=== PATIENT | female | born 1960 | race Caucasian/White ===

== ENCOUNTER 2020-01-15 10:31 | Emergency (ER) | payer MEDICAID, OTHER ==
[~2020-01-15] VITALS: Ht 160 cm; Wt 53.1 kg
[2020-01-15 11:19] LABS: Basophils # (auto) 0.1 10 ^3/uL (0-0.2); Basophils % (auto) 0.9 % (0.0-2.0); Eosinophils # (auto) 0 10 ^3/uL (0-0.8); Eosinophils % (auto) 0.5 % (0.0-7.0); Hematocrit 42.3 % (36.0-46.0); Hemoglobin 14.9 g/dL (12.2-16.2); Lymphocytes # (auto) 2.6 10 ^3/uL (0.4-5.4); Lymphocytes % (auto) 33.2 % (10.0-50.0); Mean Corpuscular Hemoglobin 32.4 pg (28.0-32.0); Mean Corpuscular Hgb Conc. 35.2 g/dL (32.0-36.0); Mean Corpuscular Volume 91.9 fL (80.0-100.0); Monocytes # (auto) 0.4 10 ^3/uL (0-1.3); Monocytes % (auto) 5.3 % (0.0-12.0); Neutrophils # (auto) 4.6 10 ^3/uL (1.6-8.6); Neutrophils % (auto) 60.1 % (37.0-80.0); Nucleated Red Blood Cells % 0.2 %; Platelet Count (auto) 311 10^3/uL (140-450); Red Cell Distribution Width 12.9 % (11.8-14.3); White Blood Cell 7.7 10^3/uL (4.4-10.8)
[2020-01-15 11:27] LABS: Urine Bacteria FEW /hpf (None Seen); Urine Blood Negative /uL (Negative); Urine Specific Gravity 1.008 (1.001-1.035); Urine WBC 14 /hpf (0 - 5)
[2020-01-15 11:36] LABS: Albumin 4.2 g/dL (3.4-5.0); Calcium 8.9 mg/dL (8.5-10.1); Potassium 3.9 mmol/L (3.5-5.1)
[2020-01-15 11:40] LABS: BUN/Creatinine Ratio 11.4; Bilirubin, Total 0.3 mg/dL (0.2-1.0); Total Protein 7.9 g/dL (6.4-8.2)
[2020-01-15] MEDS ORDERED: cefTRIAXone 1GM/50ML D5W 50 ML IV ONE (13:45)
[2020-01-15] MEDS ORDERED: MORPHINE SULF INJ 2 MG/ML SYRINGE 1ML IV ONE (14:15)
[2020-01-15] MEDS ORDERED: METOCLOPRAMIDE HCL 5MG/ml INJ 2ml VIAL IV ONE (14:15)
[2020-01-15 15:06] VITALS: BP 130/84
== END 2020-01-15 14:51 | disposition home or self-care (01) ==
LOC: ER 10:31
DX: R10.31 Right lower quadrant pain (principal); N39.0 Urinary tract infection, site not specified; I10 Essential (primary) hypertension; E11.9 Type 2 diabetes mellitus without complications; J44.9 Chronic obstructive pulmonary disease, unspecified; Z88.5 Allergy status to narcotic agent
CPT/HCPCS: 36415; 74176; 80053; 81001; 84484; 85025; 93005; 96365; 96375; 99285; J0696; J2270; J2765

== ENCOUNTER 2020-02-07 05:31 | Inpatient (IN) | payer MEDICAID ==
[~2020-02-07] VITALS: Ht 160 cm; Wt 62.4 kg
[2020-02-07] MEDS ORDERED: AZITHROMYCIN 500MG/ 250ML 250 ML IV ONE (07:15)
[2020-02-07] MEDS ORDERED: cefTRIAXone 1GM/50ML D5W 50 ML IV ONE (07:15)
[2020-02-07] MEDS ORDERED: SODIUM CHLORIDE 0.9% 1,000 ML IV ONE ×2 (07:15)
[2020-02-07 08:07] LABS: Basophils # (auto) 0.1 10 ^3/uL (0-0.2); Basophils % (auto) 0.5 % (0.0-2.0); Eosinophils # (auto) 0 10 ^3/uL (0-0.8); Hematocrit 42.3 % (36.0-46.0); Hemoglobin 14.4 g/dL (12.2-16.2); Lymphocytes # (auto) 1.7 10 ^3/uL (0.4-5.4); Lymphocytes % (auto) 9.2 % (10.0-50.0); Mean Corpuscular Hemoglobin 31.2 pg (28.0-32.0); Mean Corpuscular Hgb Conc. 33.9 g/dL (32.0-36.0); Mean Corpuscular Volume 91.9 fL (80.0-100.0); Monocytes # (auto) 1.3 10 ^3/uL (0-1.3); Monocytes % (auto) 6.9 % (0.0-12.0); Neutrophils # (auto) 15.2 10 ^3/uL (1.6-8.6); Neutrophils % (auto) 83.4 % (37.0-80.0); Nucleated Red Blood Cells % 0.1 %; Platelet Count (auto) 301 10^3/uL (140-450); Red Blood Cells 4.61 10^6/uL (4.0-5.20); Red Cell Distribution Width 12.7 % (11.8-14.3); White Blood Cell 18.3 10^3/uL (4.4-10.8)
[2020-02-07 08:24] LABS: Albumin 3.7 g/dL (3.4-5.0); Calcium 9.3 mg/dL (8.5-10.1); Potassium 3.8 mmol/L (3.5-5.1)
[2020-02-07 08:42] LABS: Bilirubin, Total 0.6 mg/dL (0.2-1.0); Total Protein 8.2 g/dL (6.4-8.2)
[2020-02-07] MEDS ORDERED: ACETAMINOPHEN 500 MG TAB PO PRN (09:45)
[2020-02-07] MEDS ORDERED: guaiFENesin-DM 100/10mg/5ml SYR PO PRN (09:45)
[2020-02-07] MEDS ORDERED: DEXTROSE (50%) 50ML SYRG IV PRN (09:45)
[2020-02-07] MEDS ORDERED: ONDANSETRON HCL 4 MG/2 ML VIAL IV PRN (09:45)
[2020-02-07] MEDS: FAMOTIDINE 20 MG TAB PO SCH (10:00)
[2020-02-07 10:14] LABS: BUN/Creatinine Ratio 10.7
[2020-02-07] MEDS ORDERED: NITROGLYCERIN 0.4 MG SL TAB SL PRN (10:30)
[2020-02-07] MEDS ORDERED: MORPHINE SULF INJ 2 MG/ML SYRINGE 1ML IV PRN (10:30)
[2020-02-07] MEDS: MORPHINE SULF INJ 2 MG/ML SYRINGE 1ML IV PRN ×2 (10:36→21:06)
[2020-02-07 10:49] LABS: Urine Bacteria FEW /hpf (None Seen); Urine Blood Negative /uL (Negative); Urine Specific Gravity 1.005 (1.001-1.035); Urine WBC 4 /hpf (0 - 5)
[2020-02-07] MEDS: IPRATROPIUM BROM 0.5 MG/2.5ML INH SOL NEB SCH ×2 (11:19→20:30)
[2020-02-07] MEDS: BUDESONIDE (INHALATION) 0.5 MG/2 ML NEB NEB SCH ×2 (11:19→20:30)
[2020-02-07] MEDS: ALBUTEROL SULF 2.5 MG/0.5ML(0.5%) NEB SOLN NEB SCH ×2 (11:20→20:30)
[2020-02-07] MEDS: InsuLIN REG 1unit/0.01ml Soln (100units/ml) SC SCH ×3 (11:30→21:04)
[2020-02-07] MEDS: ACCU-CHEK COMFORT CURVE STRIP VI SCH ×3 (11:30→21:05)
[2020-02-07 11:45] VITALS: BP 164/83
--- NOTE | 2020-02-07 11:45 | NUR ---
Telemetry admit from ER EVITADOMINIK admitted to Telemetry unit after verbal report received from LESLYE Jimenez, ER Nurse. Patient oriented to Mercy Talbot, primary RN, unit, room, bed, and unit policies regarding patient care and visiting hours. Patient is awake, alert and oriented X4. No signs or symptoms of shortness of breath, discomfort, complains of chronic lower back pain, 8/10. Patient on room air with sats @ 92%. Patient now on continuous telemetry monitoring, tele box # 1 and telemetry reading on arrival to unit is sinus rhythm @ 91 bpm. IV to right antecubital, 22 gauge, patent and infusing Zithromax per order. Patient weighed by bed scale and encouraged to call if they need something. All questions and concerns addressed, patient verbalized understanding. Bed locked, in lowest position, call light within reach, will continue to monitor Q 1 hour and PRN.
[2020-02-07 12:00] VITALS: BP 164/83
[2020-02-07] MEDS ORDERED: FLU220IH INH (12:21)
[2020-02-07] MEDS ORDERED: METF-370 PO (12:21)
[2020-02-07] MEDS ORDERED: CYCL10TA6 PO (12:21)
[2020-02-07] MEDS ORDERED: MORP30TA5 PO (12:21)
[2020-02-07] MEDS ORDERED: [UNRECOGNIZED DRUG - CODE] PO (12:21)
[2020-02-07] MEDS ORDERED: IPRA0.00 IN (12:21)
[2020-02-07] MEDS ORDERED: SIMV10TA84 PO (12:21)
[2020-02-07] MEDS ORDERED: HYDR-531 PO (12:21)
[2020-02-07] MEDS ORDERED: PROM25TA5 PO (12:21)
[2020-02-07] MEDS ORDERED: CHOL20007 PO (12:21)
[2020-02-07] MEDS ORDERED: ALBUAER3 IN (12:21)
[2020-02-07] MEDS ORDERED: ERGO1CAP12 PO (12:24)
[2020-02-07] MEDS ORDERED: DONE10TA17 PO (13:15)
[2020-02-07] MEDS ORDERED: ATO40T PO (13:15)
[2020-02-07] MEDS ORDERED: ACET650S12 PO (13:15)
[2020-02-07] MEDS ORDERED: HYDR-3682 PO (13:15)
[2020-02-07] MEDS: HYDROcodone-ACET 5/325MG TAB PO PRN (16:30)
[2020-02-07] MEDS: ENALAPRILAT 1.25 MG/ML-1ML VIAL IV PRN (16:30)
[2020-02-07 16:56] VITALS: BP 164/79
--- NOTE | 2020-02-07 19:12 | NUR ---
Report given to LESLYE Georges,, night nurse. Patient to be transferred to room 250-B
[2020-02-07 22:20] VITALS: BP 158/70
[2020-02-08 04:17] VITALS: BP 156/70
[2020-02-08 04:52] VITALS: BP 128/70
[2020-02-08] MEDS: InsuLIN REG 1unit/0.01ml Soln (100units/ml) SC SCH ×4 (05:32→21:14)
[2020-02-08] MEDS: ACCU-CHEK COMFORT CURVE STRIP VI SCH ×4 (05:32→21:15)
[2020-02-08] MEDS: MORPHINE SULF INJ 2 MG/ML SYRINGE 1ML IV PRN ×3 (05:33→21:21)
--- NOTE | 2020-02-08 06:40 | NUR ---
end of shift note will endorse pt care to day shift RN. Pt is a0x4, no s/s of distress or sob
[2020-02-08 06:57] LABS: Basophils # (auto) 0.1 10 ^3/uL (0-0.2); Basophils % (auto) 0.7 % (0.0-2.0); Eosinophils # (auto) 0 10 ^3/uL (0-0.8); Eosinophils % (auto) 0.3 % (0.0-7.0); Hematocrit 41.6 % (36.0-46.0); Hemoglobin 14.4 g/dL (12.2-16.2); Lymphocytes # (auto) 1.7 10 ^3/uL (0.4-5.4); Lymphocytes % (auto) 19.5 % (10.0-50.0); Mean Corpuscular Hemoglobin 31.5 pg (28.0-32.0); Mean Corpuscular Hgb Conc. 34.6 g/dL (32.0-36.0); Mean Corpuscular Volume 90.9 fL (80.0-100.0); Monocytes # (auto) 0.7 10 ^3/uL (0-1.3); Monocytes % (auto) 7.7 % (0.0-12.0); Neutrophils # (auto) 6.3 10 ^3/uL (1.6-8.6); Neutrophils % (auto) 71.8 % (37.0-80.0); Platelet Count (auto) 302 10^3/uL (140-450); Red Blood Cells 4.58 10^6/uL (4.0-5.20); Red Cell Distribution Width 12.5 % (11.8-14.3); White Blood Cell 8.8 10^3/uL (4.4-10.8)
--- NOTE | 2020-02-08 07:00 | NUR ---
OPENING SHIFT NOTE RECEIVED REPORT ON THE PATIENT. AWAKE LYING IN BED. PATIENT SHOWS NO SIGNS OF DISTRESS AT THIS TIME. DISCUSSED THE PLAN OF CARE WITH THE PATIENT. BED IN LOWEST POSITION, SIDE RAILS UP X2, AND THE CALL LIGHT IS WITHIN REACH.
[2020-02-08] MEDS: ALBUTEROL SULF 2.5 MG/0.5ML(0.5%) NEB SOLN NEB SCH ×3 (07:03→18:53)
[2020-02-08] MEDS: IPRATROPIUM BROM 0.5 MG/2.5ML INH SOL NEB SCH ×3 (07:03→18:53)
[2020-02-08] MEDS: BUDESONIDE (INHALATION) 0.5 MG/2 ML NEB NEB SCH ×2 (07:03→18:53)
[2020-02-08 07:08] LABS: BUN/Creatinine Ratio 10.5; Calcium 9.3 mg/dL (8.5-10.1); Potassium 3.8 mmol/L (3.5-5.1)
--- NOTE | 2020-02-08 08:32 | NUR ---
PAGED JAVIER FIELD PROFESSIONAL REGARDING A HIGH BP OF 163/77 AND THE LACK OF ENALAPRIL ON THE FLOOR. NEW ORDERS RECEIVED.
[2020-02-08 09:00] VITALS: BP 163/76
[2020-02-08] MEDS: cefTRIAXone 1GM/50ML D5W 50 ML IV SCH (09:09)
[2020-02-08] MEDS: FAMOTIDINE 20 MG TAB PO SCH (09:10)
[2020-02-08] MEDS: LABETALOL HCL 5 MG/ML 4ML SYRINGE IV PRN (09:46)
[2020-02-08] MEDS: AZITHROMYCIN 500MG/ 250ML 250 ML IV SCH (10:00)
[2020-02-08] MEDS ORDERED: ENOXAPARIN SOD 40 MG/0.4 ML SYRINGE SC SCH (10:00)
[2020-02-08] MEDS ORDERED: amLODIPine BESYLATE 5 MG TAB PO SCH (10:00)
[2020-02-08] MEDS ORDERED: NICOTINE 14 MG/24HR TOPICAL PATCH TD ONE (11:00)
[2020-02-08] MEDS ORDERED: amLODIPine BESYLATE 5 MG TAB PO ONE (11:45)
--- NOTE | 2020-02-08 11:49 | NUR ---
Respiratory note: PT REFUSED MED NEB TX DUE TO PAIN AND NAUSEA. PT ON RA, SPO2 92%. NO RESPIRATORY DISTRESS NOTED AT THIS TIME.
[2020-02-08] MEDS: HYDROcodone-ACET 5/325MG TAB PO PRN (11:55)
[2020-02-08 12:15] VITALS: BP 164/75
--- NOTE | 2020-02-08 14:39 | NUR ---
IV removal IV DC'd with clean sterile technique, catheter fully intact. Pressure dressing applied to site. Patient tolerated well.
--- NOTE | 2020-02-08 14:40 | NUR ---
IV insertion IV access obtained, via clean sterile technique by inserting 22 gauge catheter at the left forearm after 1 attempt(s). IV secured properly. No trauma to site. Patient tolerated well.
[2020-02-08 16:49] VITALS: BP 151/83
[2020-02-08 22:08] VITALS: BP 134/60
[2020-02-09] MEDS: HYDROcodone-ACET 5/325MG TAB PO PRN ×3 (00:46→17:39)
[2020-02-09] MEDS: MORPHINE SULF INJ 2 MG/ML SYRINGE 1ML IV PRN ×3 (03:25→21:47)
[2020-02-09] MEDS: ACCU-CHEK COMFORT CURVE STRIP VI SCH ×4 (05:12→21:47)
[2020-02-09] MEDS: InsuLIN REG 1unit/0.01ml Soln (100units/ml) SC SCH ×4 (05:14→21:54)
[2020-02-09] MEDS: LABETALOL HCL 5 MG/ML 4ML SYRINGE IV PRN ×2 (05:15→10:14)
[2020-02-09 05:51] VITALS: BP 162/73
[2020-02-09 06:32] LABS: Basophils # (auto) 0 10 ^3/uL (0-0.2); Basophils % (auto) 0.6 % (0.0-2.0); Eosinophils # (auto) 0.1 10 ^3/uL (0-0.8); Eosinophils % (auto) 0.9 % (0.0-7.0); Hematocrit 39.4 % (36.0-46.0); Hemoglobin 13.8 g/dL (12.2-16.2); Lymphocytes # (auto) 2.3 10 ^3/uL (0.4-5.4); Lymphocytes % (auto) 30.6 % (10.0-50.0); Mean Corpuscular Hemoglobin 31.7 pg (28.0-32.0); Mean Corpuscular Hgb Conc. 34.9 g/dL (32.0-36.0); Mean Corpuscular Volume 90.8 fL (80.0-100.0); Monocytes # (auto) 0.6 10 ^3/uL (0-1.3); Monocytes % (auto) 7.5 % (0.0-12.0); Neutrophils # (auto) 4.6 10 ^3/uL (1.6-8.6); Neutrophils % (auto) 60.4 % (37.0-80.0); Nucleated Red Blood Cells % 0.1 %; Platelet Count (auto) 320 10^3/uL (140-450); Red Blood Cells 4.34 10^6/uL (4.0-5.20); Red Cell Distribution Width 12.4 % (11.8-14.3); White Blood Cell 7.5 10^3/uL (4.4-10.8)
[2020-02-09] MEDS: IPRATROPIUM BROM 0.5 MG/2.5ML INH SOL NEB SCH ×3 (06:43→18:11)
[2020-02-09] MEDS: BUDESONIDE (INHALATION) 0.5 MG/2 ML NEB NEB SCH ×2 (06:43→18:12)
[2020-02-09] MEDS: ALBUTEROL SULF 2.5 MG/0.5ML(0.5%) NEB SOLN NEB SCH ×3 (06:43→18:11)
[2020-02-09] MEDS: ENALAPRILAT 1.25 MG/ML-1ML VIAL IV PRN (06:50)
[2020-02-09 06:52] LABS: Calcium 9.2 mg/dL (8.5-10.1); Potassium 3.7 mmol/L (3.5-5.1)
--- NOTE | 2020-02-09 06:54 | NUR ---
end of shift note will endorse pt care to day shift RN. Pt is a0x4, no s/s of distress or sob
[2020-02-09 06:55] LABS: BUN/Creatinine Ratio 12.5
--- NOTE | 2020-02-09 07:00 | NUR ---
OPENING SHIFT NOTE RECEIVED REPORT ON THE PATIENT. AWAKE LYING IN BED. PATIENT SHOWS NO SIGNS OF DISTRESS AT THIS TIME. DISCUSSED PLAN OF CARE WITH THE PATIENT. BED IN LOWEST POSITION, SIDE RAILS UP X2, AND THE CALL LIGHT IS WITHIN REACH.
[2020-02-09] MEDS: cefTRIAXone 1GM/50ML D5W 50 ML IV SCH (08:50)
[2020-02-09] MEDS: NICOTINE 14 MG/24HR TOPICAL PATCH TD SCH (08:50)
[2020-02-09] MEDS: amLODIPine BESYLATE 5 MG TAB PO SCH (08:51)
[2020-02-09] MEDS: FAMOTIDINE 20 MG TAB PO SCH (08:51)
[2020-02-09 08:53] VITALS: BP 182/83
[2020-02-09] MEDS: AZITHROMYCIN 500MG/ 250ML 250 ML IV SCH (10:13)
[2020-02-09] MEDS ORDERED: LISINOPRIL 10 MG TAB PO ONE (11:30)
[2020-02-09 12:43] VITALS: BP 148/73
[2020-02-09 16:29] VITALS: BP 155/82
--- NOTE | 2020-02-09 19:00 | NUR ---
Opening Shift Note Assumed care of patient from day shift RN. patient awake and alert and oriented x4. No S/S of distress/SOB or pain. safety measures in place call light with in reach, bed in lowest position and side rails up x2. Instructed on POC and to call for assist PRN, will continue to monitor for changes Q1hr and PRN.
[2020-02-09 20:00] VITALS: BP 158/77
--- NOTE | 2020-02-09 21:47 | NUR ---
patient c/o 10/10 pain to lower back pain medication administered at this time.
--- NOTE | 2020-02-09 22:17 | NUR ---
reassessed pain patient has 0/10 pain.
[2020-02-09 22:33] VITALS: BP 158/77
[2020-02-10] MEDS: CYCLOBENZAPRINE HCL 10 MG TAB PO PRN ×2 (01:35→09:57)
[2020-02-10] MEDS: MORPHINE SULF INJ 2 MG/ML SYRINGE 1ML IV PRN (03:19)
--- NOTE | 2020-02-10 03:19 | NUR ---
pain 10/10 to lower back pain medication administered at this time.
[2020-02-10] MEDS: LABETALOL HCL 5 MG/ML 4ML SYRINGE IV PRN ×2 (05:09→09:58)
[2020-02-10 05:30] VITALS: BP 159/80
[2020-02-10] MEDS: IPRATROPIUM BROM 0.5 MG/2.5ML INH SOL NEB SCH ×2 (06:00→11:57)
[2020-02-10] MEDS: ALBUTEROL SULF 2.5 MG/0.5ML(0.5%) NEB SOLN NEB SCH ×2 (06:00→11:57)
[2020-02-10] MEDS: ACCU-CHEK COMFORT CURVE STRIP VI SCH ×2 (06:12→11:20)
[2020-02-10] MEDS: InsuLIN REG 1unit/0.01ml Soln (100units/ml) SC SCH ×2 (06:13→11:22)
--- NOTE | 2020-02-10 07:14 | NUR ---
Endorsed care to day shift RN, safety measures in place call light with in reach, bed in lowest position and side rails up x2. No complain of pain no SOB or distress.
[2020-02-10 09:00] VITALS: BP 176/87
[2020-02-10] MEDS: cefTRIAXone 1GM/50ML D5W 50 ML IV SCH (09:04)
[2020-02-10] MEDS: FAMOTIDINE 20 MG TAB PO SCH (09:04)
[2020-02-10] MEDS: amLODIPine BESYLATE 5 MG TAB PO SCH (09:06)
[2020-02-10] MEDS: NICOTINE 14 MG/24HR TOPICAL PATCH TD SCH (09:06)
[2020-02-10] MEDS: HYDROcodone-ACET 5/325MG TAB PO PRN (09:07)
[2020-02-10] MEDS: AZITHROMYCIN 500MG/ 250ML 250 ML IV SCH (09:52)
[2020-02-10] MEDS ORDERED: LISINOPRIL 10 MG TAB PO SCH (10:00)
--- NOTE | 2020-02-10 10:28 | NUR ---
Dr. Niño at bedside aware of BP 160-180, per MD will add more meds.
--- NOTE | 2020-02-10 11:12 | NUR ---
Dr. Niño pagesamantha regarding BP 182/88 HR 81 and Labetalol is not due. Awaiting to call back.
[2020-02-10] MEDS ORDERED: cloNIDine HCL 0.1 MG TAB PO ONE (11:15)
--- NOTE | 2020-02-10 11:15 | NUR ---
Received a call from Dr. Niño, received new order, noted and carried it out.
[2020-02-10] MEDS: BUDESONIDE (INHALATION) 0.5 MG/2 ML NEB NEB SCH (11:57)
[2020-02-10 12:26] VITALS: BP 153/79
[2020-02-10 12:30] VITALS: BP_SYST 126; BP_SYST 160; BP_DIAS 87; BP_DIAS 89
[2020-02-10 13:14] VITALS: BP 153/75
--- NOTE | 2020-02-10 14:28 | NUR ---
Discharge instructions given as ordered. Encourage to follow up with PMD FOLLOW UP WITH JACY BAKER #[phone] ADDRESS : [id number] [facility] [place], [place] as instructed. All questions and concerns addressed. Patient verbalized understanding. Medication reconciliation form completed and copy given to patient. IV removed with catheter intact, pressure dressing applied. Telemetry unit returned to ICU. Patient taken to vehicle via wheelchair with all personal belongings, accompanied by staff and family member. No distress noted at time of departure.
== END 2020-02-10 14:58 | disposition home or self-care (01) | DRG 720 ==
LOC: ER 05:31 → TELE 05:32 → TELE-EAST 11:32 → EAST 02-09 08:13
PROVIDERS: ADMIT Nurse Practitioner Acute Care; ATTEND Internal Medicine
DX: A41.9 Sepsis, unspecified organism (principal); E11.65 Type 2 diabetes mellitus with hyperglycemia; J44.1 Chronic obstructive pulmonary disease with (acute) exacerbation; N18.30 Chronic kidney disease, stage 3 unspecified; N39.0 Urinary tract infection, site not specified; E11.22 Type 2 diabetes mellitus with diabetic chronic kidney disease; F17.210 Nicotine dependence, cigarettes, uncomplicated; J18.9 Pneumonia, unspecified organism; I12.9 Hypertensive chronic kidney disease with stage 1 through stage 4 chronic kidney disease, or unspecified chronic kidney disease; J44.0 Chronic obstructive pulmonary disease with (acute) lower respiratory infection; Z20.828 Contact with and (suspected) exposure to other viral communicable diseases; Z79.84 Long term (current) use of oral hypoglycemic drugs; Z79.899 Other long term (current) drug therapy
CPT/HCPCS: 36415; 71045; 71046; 80048; 80053; 81001; 82962; 83036; 83605; 85025; 87040; 87426; 87804; 94640; 96365; 96366; 96368; 96375; G0378; J0696; J1815; J2405; J3490

== ENCOUNTER 2020-12-16 12:57 | Emergency (ER) | payer MEDICAID ==
[~2020-12-16] VITALS: Ht 160 cm; Wt 63.5 kg
[~2020-12-16 12:57] MED LIST: ACET650S12 PO; ALBUAER3 IN; ATO40T PO; CYCL10TA6 PO; DONE10TA5 PO; ERGO1CAP12 PO; FLU220IH INH; HYDR-3682 PO; HYDR-531 PO; IPRA0.00 IN; METF-370 PO; MORP30TA5 PO; PROM25TA5 PO; SIMV10TA84 PO; [UNRECOGNIZED DRUG - CODE] PO
[2020-12-16] MEDS ORDERED: HYDROmorphone HCL 2 MG/ML VL IM ONE (16:15)
[2020-12-16] MEDS ORDERED: ONDANSETRON ODT 4 MG TAB PO ONE (16:30)
[2020-12-16 16:44] VITALS: BP 132/61
== END 2020-12-16 17:27 | disposition home or self-care (01) ==
LOC: ER 12:57
DX: S70.02XA Contusion of left hip, initial encounter (principal); M25.562 Pain in left knee; M48.061 Spinal stenosis, lumbar region without neurogenic claudication; M25.80 Other specified joint disorders, unspecified joint; F12.10 Cannabis abuse, uncomplicated; J44.9 Chronic obstructive pulmonary disease, unspecified; I10 Essential (primary) hypertension; E11.9 Type 2 diabetes mellitus without complications; F17.210 Nicotine dependence, cigarettes, uncomplicated; Z79.84 Long term (current) use of oral hypoglycemic drugs; Z79.899 Other long term (current) drug therapy; Z88.5 Allergy status to narcotic agent; W01.0XXA Fall on same level from slipping, tripping and stumbling without subsequent striking against object, initial encounter; Y93.89 Activity, other specified; Y92.89 Other specified places as the place of occurrence of the external cause; Y99.8 Other external cause status
CPT/HCPCS: 72192; 73562; 96372; 99284; J1170; Q0162

== ENCOUNTER 2024-04-08 11:34 | Inpatient (IN) | payer MEDICAID ==
[~2024-04-08] VITALS: Ht 152.4 cm; Wt 54.2 kg
[~2024-04-08 11:34] MED LIST changes: -ATO40T PO; +ATOR-507 PO; +CYCL-839 PO; -CYCL10TA6 PO; -DONE10TA5 PO; +DONE10TA9 PO; +PROM25TA10 PO; -PROM25TA5 PO; +SIMV10TA20 PO; -SIMV10TA84 PO
[2024-04-08] MEDS: SODIUM CHLORIDE 0.9% 1,000 ML IV ONE (13:00)
--- NOTE | 2024-04-08 13:00 | ED.PDOC ---
SOB-HPI HPI Comments HPI: 63Y F RANJEET, with PMHX of asthma, bronchitis, HTN, DM, and HLD presents to the ED with CC of SOB. Per EMS, patient has been experiencing episode of shortness of breath with associated symptoms of fever, chills, and body aches. Patient states, that she has been experiencing shortness of breath x2days, with no relief of symptom after x5 breathing treatments at home. Per EMS, patient received 3 breathing treatments in route and was stating at 98% on 2L NC. Patient denies illicit drug usage, ETOH consumption, or tobacco usage as of March 2024. Patient denies N/V/D, nasal congestion, chest pain, or fever. Initial Vital Signs: Temp : 98.7 BP:186/74 HR: RR: SpO2: Past Medical History: Asthma, Bronchitis, HTN, DM, HLD, COPD Past Surgical History: Foot surgery Social History: Denies smoking, ETOH, or drug use. Allergies: NKDA HPI: Poor Historian. REVIEW OF SYSTEMS: CONSTITUTIONAL: Denies acute: fever, diaphoresis, chills, generalized weakness. HEAD: Denies acute: headache, photophobia Eyes: Denies acute: Double vision, vision loss, eye pain, eye discharge. EARS: Denies acute: tinnitus, hearing loss, ear discharge, ear pain, THROAT: Denies acute: sore throat, swelling, difficulty swallowing , pain with swallowing, change in voice. NECK: Denies acute: neck pain, neck swelling, stiff neck. HEART: Denies acute : chest pain, palpitations, LUNGS: Denies acute: wheezing, cough, hemoptysis ABDOMEN: Denies acute: abdominal pain, Nausea, Vomiting, diarrhea, melena , hematemesis, hematochezia SKIN: Denies acute: rash, redness, lesions, itchiness. EXTREMITIES: Denies acute: calf pain, numbness, tingling, weakness, denies pain in extremity. Denies acute: Low back pain. Neuro: Denies acute: focal neurological deficit, motor or sensory focal neurological deficit, tremors, seizure like activity, confusion, dizziness, change in mental status, loss of bowel or bladder function, cauda equina like symptoms. : Denies acute: dysuria, hematuria, flank pain, increase in urinary frequency. PSYCH: Denies acute: hallucination, suicidal ideation, homicidal ideation. FEMALE: Denies acute: abnormal vaginal bleeding, foul odor, unusual discharge. PHYSICAL EXAM: General: no acute distress, awake and alert. Head: normocephalic, atraumatic. Neck: supple, trachea is midline, no swelling. Throat: Normal phonation. Eyes:, no erythema, no purulent discharge, no proptosis, no icterus. Heart: regular rate, regular rhythm, no significant murmur appreciated. Lungs: Mild respiratory distress, Able to speak in full sentences. Bilateral wheezing, no rhonchi, no crackles. No stridors Abdomen: non tender to palpation, non distended, soft, no guarding, no rebound, + bowel sounds. Neuro: Awake, Alert, oriented to name, self, situation, follows commands GCS=15. Speech is normal. Skin: no petechia, no purpura, no cyanosis, non-pale, not jaundice. Lower extremities: --no - Pitting edema no deformity, no focal swelling, no calf TTP. Makes eye contact. moves all four extremities. Face: no apparent facial droop. Chief Complaint: Shortness of Breath Time Seen by MD: 12:45 Primary Care Provider: RACHEL Luz notes: Nurses Notes, Allergies Information Source: Patient Mode of Arrival: EMS X-Ray, Labs, Meds, VS Vital Signs Date Time Temp Pulse Resp B/P (MAP) Pulse Ox O2 Delivery O2 Flow Rate FiO2 04/08/24 14:01 19 90 Room Air* 0 21 04/08/24 11:45 98.7 94 16 186/74 (111) 98 04/08/24 11:44 99 04/08/24 11:44 18 98 Nasal Cannula* 2 28 Lab Test 04/08/24 14:30 04/08/24 13:50 04/08/24 00:00 Range/Units Troponin I High Sensitivity 10 11 </=34 ng/L White Blood Count 13.3 H 4.4-10.8 10^3/uL Red Blood Count 4.96 4.0-5.20 10^6/uL Hemoglobin 15.6 12.2-16.2 g/dL Hematocrit 45.2 36.0-46.0 % Mean Corpuscular Volume 91.0 80.0-100.0 fL Mean Corpuscular Hemoglobin 31.5 28.0-32.0 pg Mean Corpuscular Hemoglobin Concent 34.6 32.0-36.0 g/dL Red Cell Distribution Width 12.3 11.8-14.3 % Platelet Count 408 140-450 10^3/uL Mean Platelet Volume 6.9 6.9-10.8 fL Neutrophils (%) (Auto) 86.4 H 37.0-80.0 % Lymphocytes (%) (Auto) 9.8 L 10.0-50.0 % Monocytes (%) (Auto) 3.0 0.0-12.0 % Eosinophils (%) (Auto) 0.3 0.0-7.0 % Basophils (%) (Auto) 0.5 0.0-2.0 % Neutrophils # (Auto) 11.5 H 1.6-8.6 10 ^3/uL Lymphocytes # (Auto) 1.3 0.4-5.4 10 ^3/uL Monocytes # (Auto) 0.4 0-1.3 10 ^3/uL Eosinophils # (Auto) 0 0-0.8 10 ^3/uL Basophils # (Auto) 0.1 0-0.2 10 ^3/uL Nucleated Red Blood Cells 0.1 % Sodium Level 132 L 136-145 mmol/L Potassium Level 4.7 3.5-5.1 mmol/L Chloride Level 96 L 98-107 mmol/L Carbon Dioxide Level 31 20-31 mmol/L Anion Gap 5 5-15 Blood Urea Nitrogen 13 9-23 mg/dL Creatinine 0.79 0.550-1.02 mg/dL Glomerular Filtration Rate Calc 83 >90 mL/min BUN/Creatinine Ratio 16.5 10.0-20.0 Serum Glucose 209 H 74-106 mg/dL Hemoglobin A1c 6.7 H <5.7 % A1C Calcium Level 10.9 H 8.7-10.4 mg/dL Magnesium Level 1.8 1.6-2.6 mg/dL Total Bilirubin 0.4 0.2-1.0 mg/dL Aspartate Amino Transferase (AST) 33 13-40 U/L Alanine Aminotransferase (ALT) 29 7-40 U/L Alkaline Phosphatase 111 46-116 U/L B-Type Natriuretic Peptide 19.42 0-100 pg/mL Total Protein 7.8 5.7-8.2 g/dL Albumin 5.0 H 3.2-4.8 g/dL Influenza Type A Antigen Negative Negative Influenza Type B Antigen Negative Negative SARS-CoV-2 Antigen (Rapid) Negative NEGATIVE Current Medications Medications (Trade) Dose Ordered Sig/Camryn Route Start Time Stop Time Status Last Admin Albuterol (Ventolin Medneb) 2.5 mg ONCE ONCE NEB 04/08/24 13:00 04/08/24 13:01 DC 04/08/24 14:01 Ipratropium Fedora (Atrovent Medneb) 1 mg ONCE ONCE NEB 04/08/24 13:00 04/08/24 13:01 DC 04/08/24 14:01 Methylprednisolone Sodium Succinate (Solu Medrol) 125 mg ONCE ONCE IV 04/08/24 13:00 04/08/24 13:01 DC 04/08/24 15:48 Sodium Chloride 1,000 ml @ 1,000 mls/hr Q1H ONCE IV 04/08/24 13:00 04/08/24 13:59 DC 04/08/24 13:00 [place] [id number] Ph: [phone] DIAGNOSTIC IMAGING Diagnostic Imaging Report : [id number] Signed PATIENT: ALISHA JAMACCT: [id number] UNIT: [id number] : 1960 LOC: ER ROOM / BED: / AGE / SEX: 63 / F ADM STATUS: REG ER SERVICE 1257 ORDERING PHYSICIAN: NEHAL ROB DO PROCEDURE(s): CXRP - CHEST PORTABLE REASON: sob ORDER NUMBER(s): [id number], ACCESSION NUMBER(s): [id number] CHEST RADIOGRAPH Indication: sob Technique: Single frontal view of the chest was obtained COMPARISON: CHEST PORTABLE on DOS: 02/08/20, CHEST XRAY 1 VIEW on DOS: 02/07/20 FINDINGS: Lines and Tubes: None Lungs: Clear Pleura: No effusion. No pneumothorax. Cardiomediastinal contours: Unremarkable Bones: Unremarkable IMPRESSION: No acute disease. ATED BY: AGAPITO FARNSWORTH MD DICTATED DATE/TIME: 04/08/24 1327 SIGNED BY: AGAPITO FARNSWORTH MD SIGNED DATE/TIME: 04/08/24 1327 CC: Time of 1ST Reevaluation: 21:33 Reevaluation 1ST: Improved Patient Education/Counseling: Diagnosis, Treatment Family Education/Counseling: No Family Present Comments Patient presented with the 63Y F BIBA, with PMHX of asthma, bronchitis, HTN, DM, and HLD presents to the ED with CC of SOB respiratory workup was initiated. patient was found with the above mentioned diagnosis. the following medications were ordered: methylprednisolone, ipratropium 1mg, Albuterol 2.5mg the following tests were ordered: CXR, EKG Patient ED course and VS have been stabilized. Patient has been reassessed in the ED and remained in a stable condition. Pertinent incidental findings were discussed with the patient and/or family. Patient/family voices understanding and is agreeable with plan. Patient has been observed in the ED adequate length of time to insure improvement/stability. Escalation of care considered: Consideration of escalation to observation or admission Patient was ADMITTED to the medicine team for further evaluation and treatment of their presentation. All the reports of any imaging studies that were ordered by myself were reviewed by myself. Departure 1 Departure Time of Disposition: 13:33 Impression: Primary Impression: COPD exacerbation Disposition: ADMITTED INPATIENT Admit to: Tele Condition: Guarded Discharged With: Self I personally scribed for NEHAL ROB DO ([email or web address]) on 04/08/24 at 13:00. Electronically submitted by Julee Ji ([email or web address]). I personally scribed for NEHAL ROB J DO ([email or web address]) on 04/08/24 at 13:08. Electronically submitted by Julee Ji ([email or web address]). I personally scribed for DARRONNEHAL J DO ([email or web address]) on 04/08/24 at 14:29. Electronically submitted by Julee Ji ([email or web address]). I personally scribed for DARRON,NEHAL J DO ([email or web address]) on 04/08/24 at 21:38. Electronically submitted by Julee Ji ([email or web address]). I personally scribed for HIEU ROBE J DO ([email or web address]) on 04/08/24 at 22:07. Electronically submitted by Julee Ji ([email or web address]). I personally scribed for NEHAL ROB DO ([email or web address]) on 04/09/24 at 10:35. Electronically submitted by Julee Ji ([email or web address]). NEHAL ROB DO Apr 08, 2024 13:00
--- NOTE | 2024-04-08 13:29 | DVH ---
CHEST RADIOGRAPH Indication: sob Technique: Single frontal view of the chest was obtained COMPARISON: CHEST PORTABLE on DOS: 02/08/20, CHEST XRAY 1 VIEW on DOS: 02/07/20 FINDINGS: Lines and Tubes: None Lungs: Clear Pleura: No effusion. No pneumothorax. Cardiomediastinal contours: Unremarkable Bones: Unremarkable IMPRESSION: No acute disease.
[2024-04-08] MEDS: ALBUTEROL SULF 2.5 MG/0.5ML(0.5%) NEB SOLN NEB ONE (14:01)
[2024-04-08] MEDS: IPRATROPIUM BROM 0.5 MG/2.5ML INH SOL NEB ONE (14:01)
[2024-04-08 14:27] LABS: Alanine Aminotransferase 29 U/L (7-40); Alkaline Phosphatase 111 U/L (46-116); Anion Gap 5 (5-15); Aspartate Aminotransferase 33 U/L (13-40); BUN/Creatinine Ratio 16.5 (10.0-20.0); Blood Urea Nitrogen 13 mg/dL (9-23); Carbon Dioxide 31 mmol/L (20-31); Magnesium 1.8 mg/dL (1.6-2.6); Potassium 4.7 mmol/L (3.5-5.1)
[2024-04-08 14:28] LABS: Bilirubin, Total 0.4 mg/dL (0.2-1.0); Total Protein 7.8 g/dL (5.7-8.2)
[2024-04-08 14:47] LABS: Basophils # (auto) 0.1 10 ^3/uL (0-0.2); Basophils % (auto) 0.5 % (0.0-2.0); Eosinophils # (auto) 0 10 ^3/uL (0-0.8); Eosinophils % (auto) 0.3 % (0.0-7.0); Hematocrit 45.2 % (36.0-46.0); Hemoglobin 15.6 g/dL (12.2-16.2); Lymphocytes # (auto) 1.3 10 ^3/uL (0.4-5.4); Lymphocytes % (auto) 9.8 % (10.0-50.0); Mean Corpuscular Hemoglobin 31.5 pg (28.0-32.0); Mean Corpuscular Hgb Conc. 34.6 g/dL (32.0-36.0); Monocytes # (auto) 0.4 10 ^3/uL (0-1.3); Neutrophils # (auto) 11.5 10 ^3/uL (1.6-8.6); Neutrophils % (auto) 86.4 % (37.0-80.0); Nucleated Red Blood Cells % 0.1 %; Platelet Count (auto) 408 10^3/uL (140-450); Red Blood Cells 4.96 10^6/uL (4.0-5.20); Red Cell Distribution Width 12.3 % (11.8-14.3); White Blood Cell 13.3 10^3/uL (4.4-10.8)
[2024-04-08 14:49] LABS: Calcium 10.9 mg/dL (8.7-10.4); Chloride 96 mmol/L (98-107); Glucose 209 mg/dL (74-106); Sodium 132 mmol/L (136-145)
[2024-04-08] MEDS: methylPREDNISolone SOD SUCC 125 MG/2 ML VL IV ONE (15:48)
[2024-04-08] MEDS ORDERED: IPRATROPIUM BROM 0.5 MG/2.5ML INH SOL NEB PRN (16:30)
[2024-04-08] MEDS ORDERED: ACETAMINOPHEN 325 MG TAB PO PRN (16:30)
[2024-04-08] MEDS ORDERED: ALBUTEROL SULF 2.5 MG/0.5ML(0.5%) NEB SOLN NEB PRN (16:30)
[2024-04-08 16:47] LABS: Urine Bacteria None Seen /hpf (None Seen)
[2024-04-08] MEDS ORDERED: DULO1CAP5 PO (16:49)
[2024-04-08] MEDS ORDERED: DICL1GEL73 TOP (16:49)
[2024-04-08] MEDS ORDERED: LIDO1PAD55 TOP (16:49)
[2024-04-08] MEDS ORDERED: BUSP10TA31 PO (16:49)
[2024-04-08] MEDS ORDERED: LOSA-535 PO (16:49)
[2024-04-08] MEDS ORDERED: AMLO1TAB22 PO (16:49)
[2024-04-08 16:54] LABS: Urine Blood Negative /uL (Negative); Urine Clarity Clear (Clear); Urine Color Light-Yellow (Yellow); Urine Protein, UAD 1+ (Negative); Urine Specific Gravity 1.011 (1.001-1.035); Urine Squamous Epithelial Cell FEW /hpf (<5); Urine Urobilinogen Normal (Negative); Urine WBC 1 /hpf (0 - 5)
--- NOTE | 2024-04-08 16:55 | DVHHP2 ---
History of Present Illness Reason for Visit: Shortness of breath, cough, fever, chills, body aches,N/V History of Present Illness Bridget Bee is a 63-year-old female with past medical history of hypertension, hyperlipidemia, diabetes, COPD, asthma, bronchitis, degenerative back disease, tonsillectomy, tubal ligation, left 3 artificial toes, us and skin cancer removal from center of chest and forehead who presents to the ED with shortness of breath, cough, fever, chills, body aches, nausea, vomiting x2 days. Patient reports that she has been having productive phlegm of green sputum. 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 Patient states that several days ago she was sick with a cold and it had resolved. Patient reports that she does not use home oxygen. Patient denies abdominal pain, diarrhea, lightheadedness, and dizziness. Cardiovascular: HTN, hyperipidemia Pulmonary: Asthma, Bronchitis, COPD Endocrine: Diabetes Past Medical History Degenerative back disease Past Surgical History: Other, Tubal Ligation, Tonsillectomy Past Surgical History Left toes artificial bone Skin cancer removed on Center of chest and forehead Review of Systems Constitutional: Yes: Fever, Chills, Other (Body aches); No: Sweats, Weakness, Malaise Eyes: No: Pain, Vision change, Conjunctivae inflammation, Eyelid inflammation, Other, Redness ENT: No: Ear pain, Ear discharge, Nose pain, Nose discharge, Nose congestion, Mouth pain, Mouth swelling, Throat pain, Throat swelling, Other Respiratory: Cough, Shortness of breath, SOB with excertion; No: Dry, Wheezing, Hemoptysis, Pleuritic Pain, Sputum, Wheezing, Other Cardiovascular: No: Chest Pain, Palpitations, Orthopnea, Paroxysmal Noc. Dyspnea, Edema, Lt Headedness, Other Gastrointestinal: Nausea, Vomiting; No: Abdominal Pain, Diarrhea, Constipation, Melena, Hematochezia, Other Genitourinary: No Dysuria, No Frequency, No Incontinence, No Hematuria, No Retention, No Other Skin: No: Rash, Lesions, Jaundice, Bruising, Other Neurological: No: Weakness, Numbness, Incoordination, Change in speech, Confusion, Seizures, Other Allergies: Coded Allergies: Codeine (Verified Allergy, Severe, 01/15/20) Medications Current Medications Medications Dose Ordered Sig/Camryn Route Start Time Stop Time Status Last Admin Dose Admin Ondansetron HCl 4 mg Q4HP PRN IV 04/08/24 16:30 UNV Enoxaparin Sodium 40 mg DAILY SC 04/09/24 10:00 UNV Acetaminophen 650 mg Q6HP PRN PO 04/08/24 16:30 UNV Morphine Sulfate 2 mg Q4HPRN PRN IV 04/08/24 16:30 UNV Albuterol 2.5 mg Q4HPRN PRN NEB 04/08/24 16:30 UNV Albuterol 2.5 mg Q6HWA NEB 04/08/24 18:00 UNV Ipratropium Webster 0.5 mg Q6HWA NEB 04/08/24 18:00 UNV Ipratropium Webster 0.5 mg Q4HPRN PRN NEB 04/08/24 16:30 UNV Methylprednisolone Sodium Succinate 40 mg Q8HR IV 04/08/24 22:00 UNV Famotidine 20 mg Q12HR IV 04/08/24 22:00 UNV Bisacodyl 5 mg BID PO 04/08/24 22:00 UNV Cyclobenzaprine HCl 10 mg TID PO 04/08/24 22:00 UNV Patient Own Medication 1 tab DAILY PO 04/09/24 10:00 UNV Patient Own Medication 10 mg DAILY PO 04/09/24 10:00 UNV Patient Own Medication 1 tab TID PO 04/08/24 22:00 UNV Budesonide 0.5 mg BID NEB 04/08/24 22:00 UNV Exam Vital Signs Vital Signs Date Time Temp Pulse Resp B/P (MAP) Pulse Ox O2 Delivery O2 Flow Rate FiO2 04/08/24 14:01 19 90 Room Air* 0 21 04/08/24 11:45 98.7 94 186/74 (111) General Appearance: Alert, Oriented X3, Cooperative, mild distress HEENT: Atraumatic, PERRLA, EOMI, Mucous membr. moist/pink Respiratory: Normal air movement Cardiovascular: Normal S1, Normal S2, No murmurs Abdominal: Normal bowel sounds, Soft, No tenderness, No hepatospenomegaly, No masses Extremities: No clubbing, No cyanosis, No edema, Normal pulses, No tenderness/swelling Skin: No rashes, No breakdown, No significant lesion Neuro: Normal gait, Normal speech, Strength at 5/5 X4 ext, Normal tone, Sensation intact Psych/Mental Status: Mental status NL, Mood NL Labs/Xrays Labs Test 04/08/24 16:46 04/08/24 14:30 04/08/24 13:50 Range/Units Troponin I High Sensitivity 10 </=34 ng/L White Blood Count 13.3 H 4.4-10.8 10^3/uL Red Blood Count 4.96 4.0-5.20 10^6/uL Hemoglobin 15.6 12.2-16.2 g/dL Hematocrit 45.2 36.0-46.0 % Mean Corpuscular Volume 91.0 80.0-100.0 fL Mean Corpuscular Hemoglobin 31.5 28.0-32.0 pg Mean Corpuscular Hemoglobin Concent 34.6 32.0-36.0 g/dL Red Cell Distribution Width 12.3 11.8-14.3 % Platelet Count 408 140-450 10^3/uL Mean Platelet Volume 6.9 6.9-10.8 fL Neutrophils (%) (Auto) 86.4 H 37.0-80.0 % Lymphocytes (%) (Auto) 9.8 L 10.0-50.0 % Monocytes (%) (Auto) 3.0 0.0-12.0 % Eosinophils (%) (Auto) 0.3 0.0-7.0 % Basophils (%) (Auto) 0.5 0.0-2.0 % Neutrophils # (Auto) 11.5 H 1.6-8.6 10 ^3/uL Lymphocytes # (Auto) 1.3 0.4-5.4 10 ^3/uL Monocytes # (Auto) 0.4 0-1.3 10 ^3/uL Eosinophils # (Auto) 0 0-0.8 10 ^3/uL Basophils # (Auto) 0.1 0-0.2 10 ^3/uL Nucleated Red Blood Cells 0.1 % Sodium Level 132 L 136-145 mmol/L Potassium Level 4.7 3.5-5.1 mmol/L Chloride Level 96 L 98-107 mmol/L Carbon Dioxide Level 31 20-31 mmol/L Anion Gap 5 5-15 Blood Urea Nitrogen 13 9-23 mg/dL Creatinine 0.79 0.550-1.02 mg/dL Glomerular Filtration Rate Calc 83 >90 mL/min BUN/Creatinine Ratio 16.5 10.0-20.0 Serum Glucose 209 H 74-106 mg/dL Calcium Level 10.9 H 8.7-10.4 mg/dL Magnesium Level 1.8 1.6-2.6 mg/dL Total Bilirubin 0.4 0.2-1.0 mg/dL Aspartate Amino Transferase (AST) 33 13-40 U/L Alanine Aminotransferase (ALT) 29 7-40 U/L Alkaline Phosphatase 111 46-116 U/L B-Type Natriuretic Peptide 19.42 0-100 pg/mL Total Protein 7.8 5.7-8.2 g/dL Albumin 5.0 H 3.2-4.8 g/dL CHEST RADIOGRAPH Indication: sob Technique: Single frontal view of the chest was obtained COMPARISON: CHEST PORTABLE on DOS: 02/08/20, CHEST XRAY 1 VIEW on DOS: 02/07/20 FINDINGS: Lines and Tubes: None Lungs: Clear Pleura: No effusion. No pneumothorax. Cardiomediastinal contours: Unremarkable Bones: Unremarkable IMPRESSION: No acute disease. Assessment/Plan Assessment/Plan Assessment/Plan: Acute on chronic COPD exacerbation Leukocytosis suspecting pneumonia UA Troponins negative x2 Respiratory treatments NS given in ER IV steroids EKG noted Chest x-ray noted mag UA BNP Supportive Oxygen Labs A.m. labs IV Abx Pain management Antiemetics Chronic Hypertension continue home meds Chronic hyperlipidemia continue home meds Diabetes uncontrolled Hemoglobin A1c ISS and Accu-Cheks Chronic Degenerative bone disease Follow up outpatient with primary care physician FEN/PPX diet hl DVT ppx - lovenox PUD ppx - famotidine with use of steroids Discussed plan of care with patient and nurse Home medications reconciled Admit to med surg Plan discussed with: Patient My Orders Orders - AFSANEH NAJERA BOTTLE FEEDER Procedure Category Date Status Time Rapid Influenza A&B LAB 04/08/24 Logged 16:26 Covid19 Antigen Maxine LAB 04/08/24 Logged Admit ADMIT 04/08/24 Transmitted 16:29 Allergies BRUNA 04/08/24 In Process 16:29 Code Status CODE 04/08/24 Transmitted 16:29 Oxygen Per Hour RT 04/08/24 Transmitted 16:29 Ondansetron Hcl PHA 04/08/24 Logged (Zofran) 16:30 Enoxaparin Sodium PHA 04/09/24 Logged (Lovenox) 10:00 Complete Blood Count LAB 04/09/24 Verified 04:00 Comprehensive LAB 04/09/24 Verified Metabolic Panel 04:00 Cardiac DIET 04/08/24 Transmitted Diet-2gna,Lofat,Lochol Dinner Acetaminophen Tablet PHA 04/08/24 Logged (Tylenol Tablet) 16:30 Morphine Sulfate PHA 04/08/24 Logged Injection 16:30 Glucose Blood PHA 04/08/24 Logged (Accu-Chek Comfort 16:30 Insulin R (Human) PHA 04/08/24 Logged (Insulin R) 16:30 Dextrose 50% Syringe PHA 04/08/24 Logged 16:30 Hemoglobin A1c LAB 04/08/24 Logged 16:29 Albuterol Medneb PHA 04/08/24 Logged (Ventolin Medneb) 16:30 Albuterol Medneb PHA 04/08/24 Logged (Ventolin Medneb) 18:00 Ipratropium Medneb PHA 04/08/24 Logged (Atrovent Medneb) 18:00 Ipratropium Medneb PHA 04/08/24 Logged (Atrovent Medneb) 16:30 Methylprednisolone PHA 04/08/24 Logged Sod Succ (Solu Medrol 22:00 Famotidine Injection PHA 04/08/24 Logged (Pepcid Injection) 22:00 Bisacodyl Ec Tablet PHA 04/08/24 Logged (Dulcolax Ec Tablet) 22:00 Cyclobenzaprine PHA 04/08/24 Logged Tablet (Flexeril 22:00 (Nf) Atorvastatin PHA 04/09/24 Logged Calcium (Lipitor) 10:00 (Nf) Donepezil PHA 04/09/24 Logged Hydrochloride 10:00 (Nf) Hydroxyzine Hcl PHA 04/08/24 Logged 22:00 Budesonide PHA 04/08/24 Logged (Inhalation) 22:00 Ceftriaxone Ivpb PHA 04/09/24 Verified Rocephin 09:00 Ceftriaxone Ivpb PHA 04/08/24 Verified Rocephin 17:00 Date of Service: Apr 08, 2024 Billing Provider: AFSANEH NAJERAP Common Visit Codes: [id number] INP/OBS CARE (HIGH) THON,SALINA K BOTTLE FEEDER Apr 08, 2024 16:55
[2024-04-08] MEDS: BUDESONIDE (INHALATION) 0.5 MG/2 ML NEB NEB SCH (17:52)
[2024-04-08] MEDS: ALBUTEROL SULF 2.5 MG/0.5ML(0.5%) NEB SOLN NEB SCH (17:52)
[2024-04-08] MEDS: IPRATROPIUM BROM 0.5 MG/2.5ML INH SOL NEB SCH (17:52)
[2024-04-08 19:10] VITALS: BP 186/74; PULSE 94; RESP 22; TEMP 98.7; O2SAT 95
[2024-04-08 19:40] VITALS: PULSE 93; RESP 18; O2SAT 94
[2024-04-08] MEDS: ACCU-CHEK COMFORT CURVE STRIP VI ONE (19:50)
[2024-04-08] MEDS: DEXTROSE (50%) 50ML SYRG IV ONE (19:50)
[2024-04-08] MEDS: ONDANSETRON HCL 4 MG/2 ML VIAL IV PRN (19:56)
[2024-04-08] MEDS: InsuLIN REG 1unit/0.01ml Soln (100units/ml) SC ONE (19:57)
[2024-04-08] MEDS: MORPHINE SULFATE INJ 2 MG/ml SYRG IV PRN (19:57)
[2024-04-08] MEDS: cefTRIAXone 1GM/50ML D5W 50 ML IV ONE (20:15)
[2024-04-08 21:26] LABS: Rapid Influenza A Negative (Negative); Rapid Influenza B Negative (Negative)
[2024-04-08 21:27] LABS: COVID19 ANTIGEN SOFIA FIA NEGATIVE (NEGATIVE)
[2024-04-08] MEDS: methylPREDNISolone SOD SUCC 40 MG/ML VL IV SCH (23:03)
[2024-04-08] MEDS: ATORVASTATIN 20 MG TAB PO SCH (23:03)
[2024-04-08] MEDS: BISACODYL 5 MG EC TAB PO SCH (23:03)
[2024-04-08] MEDS: FAMOTIDINE (10MG/ML) 2ML VL IV SCH (23:04)
[2024-04-08] MEDS: hydrOXYzine 25 MG TAB or CAP PO SCH (23:04)
[2024-04-08] MEDS: CYCLOBENZAPRINE HCL 10 MG TAB PO SCH (23:04)
[2024-04-08] MEDS: hydrALAZINE HCL 20 MG/ML VL IV PRN (23:18)
[2024-04-09] VITALS (12 sets, daily range): BP systolic 157–199; BP diastolic 65–84; PULSE 86–105; RESP 16–22; TEMP 97.6–97.9; O2SAT 95–100
[2024-04-09 04:16] LABS: Basophils # (auto) 0 10 ^3/uL (0-0.2); Basophils % (auto) 0.4 % (0.0-2.0); Eosinophils # (auto) 0 10 ^3/uL (0-0.8); Hematocrit 44.6 % (36.0-46.0); Hemoglobin 15.8 g/dL (12.2-16.2); Lymphocytes # (auto) 0.7 10 ^3/uL (0.4-5.4); Lymphocytes % (auto) 7.4 % (10.0-50.0); Mean Corpuscular Hemoglobin 31.9 pg (28.0-32.0); Mean Corpuscular Hgb Conc. 35.3 g/dL (32.0-36.0); Mean Corpuscular Volume 90.2 fL (80.0-100.0); Monocytes # (auto) 0.3 10 ^3/uL (0-1.3); Monocytes % (auto) 2.8 % (0.0-12.0); Neutrophils # (auto) 8.1 10 ^3/uL (1.6-8.6); Neutrophils % (auto) 89.4 % (37.0-80.0); Platelet Count (auto) 380 10^3/uL (140-450); Red Blood Cells 4.95 10^6/uL (4.0-5.20); Red Cell Distribution Width 12.5 % (11.8-14.3)
[2024-04-09 04:36] LABS: Alanine Aminotransferase 26 U/L (7-40); Albumin 4.9 g/dL (3.2-4.8); Alkaline Phosphatase 104 U/L (46-116); Anion Gap 8 (5-15); Aspartate Aminotransferase 28 U/L (13-40); BUN/Creatinine Ratio 11.5 (10.0-20.0); Bilirubin, Total 0.4 mg/dL (0.2-1.0); Blood Urea Nitrogen 9 mg/dL (9-23); Calcium 10.9 mg/dL (8.7-10.4); Carbon Dioxide 27 mmol/L (20-31); Chloride 95 mmol/L (98-107); Glucose 297 mg/dL (74-106); Potassium 3.8 mmol/L (3.5-5.1); Sodium 130 mmol/L (136-145); Total Protein 7.9 g/dL (5.7-8.2)
[2024-04-09] MEDS: cefTRIAXone 1GM/50ML D5W 50 ML IV SCH (08:50)
[2024-04-09] MEDS: ENOXAPARIN SOD 40 MG/0.4 ML SYRINGE SC SCH (09:29)
[2024-04-09] MEDS: DONEPEZIL HYDROCHLORIDE 5 MG TAB PO SCH (09:30)
[2024-04-09] MEDS: METOPROLOL TARTRATE 25 MG TAB PO SCH (09:31)
[2024-04-09] MEDS: hydrALAZINE HCL 20 MG/ML VL IV PRN (11:45)
--- NOTE | 2024-04-09 12:03 | DVHPN2 ---
Subjective Somewhat better. High blood pressure. Reviewed: Care Plan, H&P, Labs, Medications, Previous Orders, Radiology Changes from previous H/P or p: No Changes Respiratory: Cough, Shortness of breath, SOB with excertion Objective Vitals Vital Signs Date Time Temp Pulse Resp B/P (MAP) Pulse Ox O2 Delivery O2 Flow Rate FiO2 04/09/24 11:45 209/85 04/09/24 10:34 54 04/09/24 09:26 97.9 18 99 97.9 04/09/24 06:28 Nasal Cannula 2.0 04/09/24 06:28 28 Intake/Output Intake and Output 04/09/24 07:00 Intake Total 50 ml Balance 50 ml Intake IV Total 50 ml General Appearance: Alert, Oriented X3, Cooperative, mild distress HEENT: Atraumatic Lungs: Other (Decreased air) Cardiovascular: Regular rate (y bilateral lungs) Abdomen: Normal bowel sounds, Soft, No tenderness Extremities: No edema Medications Current Medications Medications Dose Ordered Sig/Camryn Route Start Time Stop Time Status Last Admin Dose Admin Ondansetron HCl 4 mg Q4HP PRN IV 04/08/24 16:30 04/08/24 19:56 4 MG Enoxaparin Sodium 40 mg DAILY SC 04/09/24 10:00 04/09/24 09:29 40 MG Acetaminophen 650 mg Q6HP PRN PO 04/08/24 16:30 Morphine Sulfate 2 mg Q4HPRN PRN IV 04/08/24 16:30 04/09/24 05:33 2 MG Albuterol 2.5 mg Q4HPRN PRN NEB 04/08/24 16:30 Albuterol 2.5 mg Q6HWA NEB 04/08/24 18:00 04/09/24 06:28 2.5 MG Ipratropium [place] 0.5 mg Q6HWA NEB 04/08/24 18:00 04/09/24 06:28 0.5 MG Ipratropium [place] 0.5 mg Q4HPRN PRN NEB 04/08/24 16:30 Methylprednisolone Sodium Succinate 40 mg Q8HR IV 04/08/24 22:00 04/09/24 05:33 40 MG Famotidine 20 mg Q12HR IV 04/08/24 22:00 04/09/24 09:29 20 MG Bisacodyl 5 mg BID PO 04/08/24 22:00 04/09/24 09:30 5 MG Cyclobenzaprine HCl 10 mg TID PO 04/08/24 22:00 04/09/24 05:32 10 MG Atorvastatin Calcium 40 mg HS PO 04/08/24 22:00 04/08/24 23:03 40 MG Donepezil HCl 10 mg DAILY PO 04/09/24 10:00 04/09/24 09:30 10 MG Hydroxyzine Pamoate 25 mg TID PO 04/08/24 22:00 04/09/24 05:42 25 MG Budesonide 0.5 mg BID NEB 04/08/24 22:00 04/09/24 06:31 0.5 MG Ceftriaxone Sodium 50 ml @ 100 mls/hr DAILY@09 IV 04/09/24 09:00 04/09/24 08:50 100 MLS/HR Metoprolol Tartrate 25 mg BID PO 04/09/24 10:00 04/09/24 09:31 25 MG Hydralazine HCl 10 mg Q2HPRN PRN IV 04/09/24 11:30 04/09/24 11:45 10 MG Buspirone HCl 10 mg BID PO 04/09/24 22:00 UNV Duloxetine HCl 30 mg BID PO 04/09/24 22:00 UNV Acetaminophen/ Hydrocodone Bitart 1 tab TIDP PO 04/09/24 14:00 UNV Patient Own Medication 1 puff Q12HR INH 04/09/24 22:00 UNV Patient Own Medication 1 tab DAILY PO 04/10/24 10:00 UNV Laboratory Results Laboratory Tests 04/09/24 03:30 Chemistry Test 04/08/24 13:50 04/09/24 03:30 Albumin 5.0 g/dL (3.2-4.8) H 4.9 g/dL (3.2-4.8) H Calcium Level 10.9 mg/dL (8.7-10.4) H 10.9 mg/dL (8.7-10.4) H Magnesium Level 1.8 mg/dL (1.6-2.6) Total Protein 7.8 g/dL (5.7-8.2) 7.9 g/dL (5.7-8.2) Cardiac Markers Test 04/08/24 13:50 B-Type Natriuretic Peptide 19.42 pg/mL (0-100) LFT Test 04/08/24 13:50 04/09/24 03:30 Alanine Aminotransferase (ALT) 29 U/L (7-40) 26 U/L (7-40) Alkaline Phosphatase 111 U/L (46-116) 104 U/L (46-116) Aspartate Amino Transferase (AST) 33 U/L (13-40) 28 U/L (13-40) Total Bilirubin 0.4 mg/dL (0.2-1.0) 0.4 mg/dL (0.2-1.0) HgA1c, TSH Test 04/08/24 13:50 Hemoglobin A1c 6.7 % A1C (<5.7) H Urinalysis Test 04/08/24 16:46 Urine Color Light-yellow (Yellow) Urine Clarity Clear (Clear) Urine pH 6.0 (5.0-9.0) Urine Specific [place] 1.011 (1.001-1.035) Urine Protein 1+ (Negative) H Urine Ketones Negative (Negative) Urine Blood Negative /uL (Negative) Urine Nitrite Negative (Negative) Urine Bilirubin Negative (Negative) Urine Urobilinogen Normal mg/dL (Negative) Urine Leukocyte Esterase Negative /uL (Negative) Urine RBC 2 /hpf (0 - 4) Urine WBC 1 /hpf (0 - 5) Urine Squamous Epithelial Cells Few /hpf (<5) Urine Bacteria None seen /hpf (None Seen) Urine Glucose 3+ mg/dL (Normal) H Assessment/Plan Assessment/Plan COPD and asthma exacerbation Hypertensive urgency Hyponatremia Diabetes Dyslipidemia Degenerative joint disease Overweight/obesity with BMI of 29.4 and multiple comorbidities Plan: Continue current plan of care. Restart losartan as home medication. Hydralazine every 2 hours for blood pressure as needed. Further plan per orders Plan discussed with: Patient, Other (Nursing) My Orders Orders - ALDO PUENTE MD Procedure Category Date Status Time Hydralazine Injection PHA 04/09/24 In Process (Apresoline Inject 11:30 Buspirone Hcl Tablet PHA 04/09/24 Transmitted (Buspar Tablet) 22:00 Duloxetine Hcl PHA 04/09/24 Transmitted Capsule (Cymbalta 22:00 Hydrocodone-Acet PHA 04/09/24 Transmitted 10/325mg Tab ([place] 14:00 (Nf) Fluticasone PHA 04/09/24 Transmitted Propionate (Flovent 22:00 (Nf) Losartan PHA 04/10/24 Transmitted Potassium 10:00 Date of Service: Apr 09, 2024 Billing Provider: ALDO PUENTE MD Common Visit Codes: [id number] INP/OBS CARE(HIGH) ALDO PUENTE MD Apr 09, 2024 12:03
[2024-04-09 12:05] LABS: Hepatitis B Surface Antigen Negative (Negative)
[2024-04-09 12:09] LABS: Hepatitis C Antibody Positive (Negative)
[2024-04-09] MEDS: DOXYCYCLINE 100MG/250ML 250 ML IV SCH (14:57)
[2024-04-09] MEDS: FLUTICASONE PROPIONATE IN SCH (22:00)
[2024-04-09] MEDS: busPIRone HCL 10 MG TAB PO SCH (22:05)
[2024-04-09] MEDS: DULoxetine HCL 30 MG CAP PO SCH (22:06)
[2024-04-09] MEDS ORDERED: TRAZ1TAB12 PO (22:19)
[2024-04-10] VITALS (12 sets, daily range): BP systolic 105–197; BP diastolic 57–77; PULSE 18–105; RESP 16–97; TEMP 97.3–98.5; O2SAT 95–100
--- NOTE | 2024-04-10 06:02 | DVH ---
CHEST RADIOGRAPH Indication: fu Technique: Single frontal view of the chest was obtained Comparison: XY CHEST PORTABLE on DOS: 04/08/24, CHEST PORTABLE on DOS: 02/08/20, CHEST XRAY 1 VIEW on DO S: 02/07/20 IMPRESSION: Heart appears normal in size. The lungs appear clear without focal airspace opacity, effusion, or pn eumothorax
[2024-04-10 06:14] LABS: Alanine Aminotransferase 24 U/L (7-40); Albumin 4.8 g/dL (3.2-4.8); Alkaline Phosphatase 103 U/L (46-116); Anion Gap 7 (5-15); Aspartate Aminotransferase 34 U/L (13-40); BUN/Creatinine Ratio 14.5 (10.0-20.0); Blood Urea Nitrogen 11 mg/dL (9-23); Carbon Dioxide 27 mmol/L (20-31)
[2024-04-10 06:15] LABS: Bilirubin, Total 0.4 mg/dL (0.2-1.0); Total Protein 7.9 g/dL (5.7-8.2)
[2024-04-10] MEDS: cloNIDine HCL 0.1 MG TAB PO PRN (06:20)
[2024-04-10 06:33] LABS: Calcium 10.9 mg/dL (8.7-10.4); Chloride 93 mmol/L (98-107); Glucose 256 mg/dL (74-106); Sodium 127 mmol/L (136-145)
[2024-04-10] MEDS: HYDROcodone-ACET 10/325MG TAB PO PRN (06:52)
[2024-04-10] MEDS: LOSARTAN POTASSIUM 50 MG TAB PO SCH (10:01)
--- NOTE | 2024-04-10 13:01 | DVHPN2 ---
Subjective Feels much better. She has good appetite today Reviewed: Care Plan, H&P, Labs, Medications, Previous Orders, Radiology Changes from previous H/P or p: No Changes Respiratory: Cough, Shortness of breath, SOB with excertion Objective Vitals Vital Signs Date Time Temp Pulse Resp B/P (MAP) Pulse Ox O2 Delivery O2 Flow Rate FiO2 04/10/24 11:26 83 16 100 04/10/24 11:20 Nasal Cannula* 2 28 04/10/24 10:02 139/82 04/10/24 09:00 97.7 97.7 Intake/Output Intake and Output 04/10/24 07:00 Intake Total 2170 ml Output Total 8 ml Balance 2162 ml Intake Oral 1620 ml IV Total 550 ml Output Urine Total 8 ml General Appearance: Alert, Oriented X3, Cooperative, mild distress HEENT: Atraumatic Lungs: Other (Wheezes bilateral lungs with better air entry) Cardiovascular: Regular rate (y bilateral lungs) Abdomen: Normal bowel sounds, Soft, No tenderness Extremities: No edema Medications Current Medications Medications Dose Ordered Sig/[place] Route Start Time Stop Time Status Last Admin Dose Admin Ondansetron HCl 4 mg Q4HP PRN IV 04/08/24 16:30 04/08/24 19:56 4 MG Enoxaparin Sodium 40 mg DAILY SC 04/09/24 10:00 04/10/24 10:00 40 MG Acetaminophen 650 mg Q6HP PRN PO 04/08/24 16:30 Morphine Sulfate 2 mg Q4HPRN PRN IV 04/08/24 16:30 04/10/24 10:02 2 MG Albuterol 2.5 mg Q4HPRN PRN NEB 04/08/24 16:30 Albuterol 2.5 mg Q6HWA NEB 04/08/24 18:00 04/10/24 11:19 2.5 MG Ipratropium [place] 0.5 mg Q6HWA NEB 04/08/24 18:00 04/10/24 11:20 0.5 MG Ipratropium [place] 0.5 mg Q4HPRN PRN NEB 04/08/24 16:30 Methylprednisolone Sodium Succinate 40 mg Q8HR IV 04/08/24 22:00 04/09/24 22:07 40 MG Famotidine 20 mg Q12HR IV 04/08/24 22:00 04/10/24 09:59 20 MG Bisacodyl 5 mg BID PO 04/08/24 22:00 04/10/24 09:58 5 MG Cyclobenzaprine HCl 10 mg TID PO 04/08/24 22:00 04/10/24 06:14 10 MG Atorvastatin Calcium 40 mg HS PO 04/08/24 22:00 04/09/24 22:05 40 MG Donepezil HCl 10 mg DAILY PO 04/09/24 10:00 04/10/24 09:59 10 MG Hydroxyzine Pamoate 25 mg TID PO 04/08/24 22:00 04/10/24 06:14 25 MG Budesonide 0.5 mg BID NEB 04/08/24 22:00 04/10/24 06:04 0.5 MG Metoprolol Tartrate 25 mg BID PO 04/09/24 10:00 04/10/24 10:00 25 MG Hydralazine HCl 10 mg Q2HPRN PRN IV 04/09/24 11:30 04/09/24 23:18 10 MG Buspirone HCl 10 mg BID PO 04/09/24 22:00 04/10/24 09:58 10 MG Duloxetine HCl 30 mg BID PO 04/09/24 22:00 04/10/24 09:58 30 MG Acetaminophen/ Hydrocodone Bitart 1 tab TID PRN PO 04/09/24 14:00 04/10/24 06:52 1 TAB Patient Own Medication 1 puff Q12HR IN 04/09/24 22:00 Losartan Potassium 100 mg DAILY PO 04/10/24 10:00 04/10/24 10:01 100 MG Doxycycline Hyclate 250 ml @ 125 mls/hr Q12H IV 04/09/24 14:00 04/10/24 02:53 125 MLS/HR Clonidine HCl 0.2 mg Q4HPRN PRN PO 04/10/24 01:30 04/10/24 06:20 0.2 MG Laboratory Results Laboratory Tests 04/09/24 03:30 04/10/24 04:35 Chemistry Test 04/10/24 04:35 Albumin 4.8 g/dL (3.2-4.8) Calcium Level 10.9 mg/dL (8.7-10.4) H Total Protein 7.9 g/dL (5.7-8.2) LFT Test 04/10/24 04:35 Alanine Aminotransferase (ALT) 24 U/L (7-40) Alkaline Phosphatase 103 U/L (46-116) Aspartate Amino Transferase (AST) 34 U/L (13-40) Total Bilirubin 0.4 mg/dL (0.2-1.0) Urinalysis Test 04/08/24 16:46 Urine Color Light-yellow (Yellow) Urine Clarity Clear (Clear) Urine pH 6.0 (5.0-9.0) Urine Specific [place] 1.011 (1.001-1.035) Urine Protein 1+ (Negative) H Urine Ketones Negative (Negative) Urine Blood Negative /uL (Negative) Urine Nitrite Negative (Negative) Urine Bilirubin Negative (Negative) Urine Urobilinogen Normal mg/dL (Negative) Urine Leukocyte Esterase Negative /uL (Negative) Urine RBC 2 /hpf (0 - 4) Urine WBC 1 /hpf (0 - 5) Urine Squamous Epithelial Cells Few /hpf (<5) Urine Bacteria None seen /hpf (None Seen) Urine Glucose 3+ mg/dL (Normal) H Assessment/Plan Assessment/Plan COPD and asthma exacerbation/improving Hypertensive urgency Hyponatremia Diabetes Dyslipidemia Degenerative joint disease Overweight/obesity with BMI of 29.4 and multiple comorbidities Plan: Continue IV Solu-Medrol. Continue antibiotics. Possible home tomorrow if stable Plan discussed with: Patient Date of Service: Apr 10, 2024 Billing Provider: ALDO PUENTE MD Common Visit Codes: [id number] INP/OBS CARE(HIGH) ALDO PUENTE MD Apr 10, 2024 13:01
[2024-04-11] VITALS (9 sets, daily range): BP systolic 142–155; BP diastolic 72–117; PULSE 65–95; RESP 15–18; TEMP 97.9–98.3; O2SAT 94–100
--- NOTE | 2024-04-11 11:35 | DVHPN2 ---
Reviewed: Care Plan, H&P, Labs, Medications, Previous Orders, Radiology Changes from previous H/P or p: No Changes Respiratory: Cough, Shortness of breath, SOB with excertion Objective Vitals Vital Signs Date Time Temp Pulse Resp B/P (MAP) Pulse Ox O2 Delivery O2 Flow Rate FiO2 04/11/24 10:55 79 16 155/117 04/11/24 09:00 98.0 94 98.0 04/11/24 05:59 Nasal Cannula* 2 28 Intake/Output Intake and Output 04/11/24 07:00 Intake Total 2200 ml Output Total 505 ml Balance 1695 ml Intake Oral 1700 ml IV Total 500 ml Output Urine Total 505 ml General Appearance: Alert, Oriented X3, Cooperative, mild distress HEENT: Atraumatic Lungs: Other (Wheezes bilateral lungs with better air entry) Cardiovascular: Regular rate (y bilateral lungs) Abdomen: Normal bowel sounds, Soft, No tenderness Extremities: No edema Medications Current Medications Medications Dose Ordered Sig/[place] Route Start Time Stop Time Status Last Admin Dose Admin Ondansetron HCl 4 mg Q4HP PRN IV 04/08/24 16:30 04/08/24 19:56 4 MG Enoxaparin Sodium 40 mg DAILY SC 04/09/24 10:00 04/11/24 10:55 40 MG Acetaminophen 650 mg Q6HP PRN PO 04/08/24 16:30 Morphine Sulfate 2 mg Q4HPRN PRN IV 04/08/24 16:30 04/11/24 10:55 2 MG Albuterol 2.5 mg Q4HPRN PRN NEB 04/08/24 16:30 Albuterol 2.5 mg Q6HWA NEB 04/08/24 18:00 04/11/24 05:59 2.5 MG Ipratropium [place] 0.5 mg Q6HWA NEB 04/08/24 18:00 04/11/24 05:59 0.5 MG Ipratropium [place] 0.5 mg Q4HPRN PRN NEB 04/08/24 16:30 Methylprednisolone Sodium Succinate 40 mg Q8HR IV 04/08/24 22:00 04/11/24 05:38 40 MG Famotidine 20 mg Q12HR IV 04/08/24 22:00 04/11/24 10:52 20 MG Bisacodyl 5 mg BID PO 04/08/24 22:00 04/11/24 10:54 5 MG Cyclobenzaprine HCl 10 mg TID PO 04/08/24 22:00 04/11/24 05:38 10 MG Atorvastatin Calcium 40 mg HS PO 04/08/24 22:00 04/10/24 21:54 40 MG Donepezil HCl 10 mg DAILY PO 04/09/24 10:00 04/10/24 09:59 10 MG Hydroxyzine Pamoate 25 mg TID PO 04/08/24 22:00 04/11/24 05:38 25 MG Budesonide 0.5 mg BID NEB 04/08/24 22:00 04/11/24 05:59 0.5 MG Metoprolol Tartrate 25 mg BID PO 04/09/24 10:00 04/11/24 10:54 25 MG Hydralazine HCl 10 mg Q2HPRN PRN IV 04/09/24 11:30 04/09/24 23:18 10 MG Buspirone HCl 10 mg BID PO 04/09/24 22:00 04/11/24 10:52 10 MG Duloxetine HCl 30 mg BID PO 04/09/24 22:00 04/11/24 10:54 30 MG Acetaminophen/ Hydrocodone Bitart 1 tab TID PRN PO 04/09/24 14:00 04/10/24 06:52 1 TAB Patient Own Medication 1 puff Q12HR IN 04/09/24 22:00 Losartan Potassium 100 mg DAILY PO 04/10/24 10:00 04/11/24 10:53 100 MG Doxycycline Hyclate 250 ml @ 125 mls/hr Q12H IV 04/09/24 14:00 04/11/24 01:57 125 MLS/HR Clonidine HCl 0.2 mg Q4HPRN PRN PO 04/10/24 01:30 04/10/24 18:55 0.2 MG Laboratory Results Laboratory Tests 04/09/24 03:30 04/10/24 04:35 Urinalysis Test 04/08/24 16:46 Urine Color Light-yellow (Yellow) Urine Clarity Clear (Clear) Urine pH 6.0 (5.0-9.0) Urine Specific [place] 1.011 (1.001-1.035) Urine Protein 1+ (Negative) H Urine Ketones Negative (Negative) Urine Blood Negative /uL (Negative) Urine Nitrite Negative (Negative) Urine Bilirubin Negative (Negative) Urine Urobilinogen Normal mg/dL (Negative) Urine Leukocyte Esterase Negative /uL (Negative) Urine RBC 2 /hpf (0 - 4) Urine WBC 1 /hpf (0 - 5) Urine Squamous Epithelial Cells Few /hpf (<5) Urine Bacteria None seen /hpf (None Seen) Urine Glucose 3+ mg/dL (Normal) H Labs and/or images reviewed: Labs reviewed by me, Image(s) reviewed by me Assessment/Plan Assessment/Plan Acute COPD exacerbation: Albuterol Atrovent Solu-Medrol Hypertensive urgency Hyponatremia Diabetes Dyslipidemia Degenerative joint disease Moderate obesity BMI 23 Plan discussed with: Patient Date of Service: Apr 11, 2024 Billing Provider: TANG BATES MD Common Visit Codes: [id number] INP/OBS CARE(HIGH) TANG BATES MD Apr 11, 2024 11:35
[2024-04-11] MEDS ORDERED: LEVO500T91 PO (11:36)
[2024-04-11] MEDS ORDERED: PRED20TA2 PO (11:36)
--- NOTE | 2024-04-11 11:40 | DVHDS2 ---
Discharge Summary Date of Admission Apr 08, 2024 at 16:29 Date of Discharge: Apr 11, 2024 Admitting Diagnosis Shortness of breaths Wounds: None Labs/Diagnostic Data: Laboratory Results Test 04/10/24 04:35 04/09/24 03:30 04/08/24 16:46 04/08/24 14:30 Sodium Level 127 mmol/L (136-145) Potassium Level 4.0 mmol/L (3.5-5.1) Chloride Level 93 mmol/L (98-107) Carbon Dioxide Level 27 mmol/L (20-31) Anion Gap 7 (5-15) Blood Urea Nitrogen 11 mg/dL (9-23) Creatinine 0.76 mg/dL (0.550-1.02) Glomerular Filtration Rate Calc 87 mL/min (>90) BUN/Creatinine Ratio 14.5 (10.0-20.0) Serum Glucose 256 mg/dL (74-106) Calcium Level 10.9 mg/dL (8.7-10.4) Total Bilirubin 0.4 mg/dL (0.2-1.0) Aspartate Amino Transferase (AST) 34 U/L (13-40) Alanine Aminotransferase (ALT) 24 U/L (7-40) Alkaline Phosphatase 103 U/L (46-116) Total Protein 7.9 g/dL (5.7-8.2) Albumin 4.8 g/dL (3.2-4.8) White Blood Count 9.0 10^3/uL (4.4-10.8) Red Blood Count 4.95 10^6/uL (4.0-5.20) Hemoglobin 15.8 g/dL (12.2-16.2) Hematocrit 44.6 % (36.0-46.0) Mean Corpuscular Volume 90.2 fL (80.0-100.0) Mean Corpuscular Hemoglobin 31.9 pg (28.0-32.0) Mean Corpuscular Hemoglobin Concent 35.3 g/dL (32.0-36.0) Red Cell Distribution Width 12.5 % (11.8-14.3) Platelet Count 380 10^3/uL (140-450) Mean Platelet Volume 6.9 fL (6.9-10.8) Neutrophils (%) (Auto) 89.4 % (37.0-80.0) Lymphocytes (%) (Auto) 7.4 % (10.0-50.0) Monocytes (%) (Auto) 2.8 % (0.0-12.0) Eosinophils (%) (Auto) 0.0 % (0.0-7.0) Basophils (%) (Auto) 0.4 % (0.0-2.0) Neutrophils # (Auto) 8.1 10 ^3/uL (1.6-8.6) Lymphocytes # (Auto) 0.7 10 ^3/uL (0.4-5.4) Monocytes # (Auto) 0.3 10 ^3/uL (0-1.3) Eosinophils # (Auto) 0 10 ^3/uL (0-0.8) Basophils # (Auto) 0 10 ^3/uL (0-0.2) Nucleated Red Blood Cells 0.0 % Hepatitis B Surface Antigen Negative (Negative) Hepatitis C Antibody Positive (Negative) Urine Color Light-yellow (Yellow) Urine Clarity Clear (Clear) Urine pH 6.0 (5.0-9.0) Urine Specific [place] 1.011 (1.001-1.035) Urine Protein 1+ (Negative) Urine Ketones Negative (Negative) Urine Blood Negative /uL (Negative) Urine Nitrite Negative (Negative) Urine Bilirubin Negative (Negative) Urine Urobilinogen Normal mg/dL (Negative) Urine Leukocyte Esterase Negative /uL (Negative) Urine RBC 2 /hpf (0 - 4) Urine WBC 1 /hpf (0 - 5) Urine Squamous Epithelial Cells Few /hpf (<5) Urine Bacteria None seen /hpf (None Seen) Urine Glucose 3+ mg/dL (Normal) Troponin I High Sensitivity 10 ng/L (</=34) Test 04/08/24 13:50 04/08/24 00:00 Hemoglobin A1c 6.7 % A1C (<5.7) Magnesium Level 1.8 mg/dL (1.6-2.6) B-Type Natriuretic Peptide 19.42 pg/mL (0-100) Influenza Type A Antigen Negative (Negative) Influenza Type B Antigen Negative (Negative) SARS-CoV-2 Antigen (Rapid) Negative (NEGATIVE) Other Laboratory Tests 04/10/24 04:35 04/09/24 03:30 Brief Hx & Hospital Course: 63-year-old female with a history of hypertension COPD on home oxygen diabetes hypercholesterolemia degenerative joint disease chronic history of smoking more than 50 years came in for exacerbation of COPD. Treated with the med nebs and Solu-Medrol and she was improved he is being discharged home. At the time of discharge she is afebrile on room air Prescription for Levaquin and prednisone transmitted pharmacy Consults/Reason for consult None Operations or Procedures None Condition at Discharge: Fair Final Diagnosis/Problems List Acute COPD exacerbation: Albuterol Atrovent Solu-Medrol Hypertensive urgency Hyponatremia Diabetes More than 50 year history of smoking Dyslipidemia Degenerative joint disease Moderate obesity BMI 23 Discharge Disposition: Home Discharge Instruct/Medications Diet: Regular Activity: Light activity Follow Up/Referral: Follow up with your primary Dr Streeter all previous home meds Medications: Levaquin Prednisone tablets Transmitted to the pharmacy 35 (Time taken for discharge summary 35 minutes) Discharge Statement: "Patient was advised to return to the ER or call 911 if any headaches, dizziness, shortness of breath, chest pain, abdominal pain, bleeding, fevers, or worsening of medical condition. Patient was counseled about treatment plan, medications, possible side effects, patientverbalized understanding. All questions were answered to the best of my ability. This discharge took greater then 30 minutes in planning, reviewing documentation, counseling the patient, and discussing with other team members." ASSESSMENT ASSESSMENT Hospital Course Improved Assessment Acute COPD exacerbation: Albuterol Atrovent Solu-Medrol Hypertensive urgency Hyponatremia Diabetes More than 50 year history of smoking Dyslipidemia Degenerative joint disease Moderate obesity BMI 23 Date of Service: Apr 11, 2024 Billing Provider: TANG BATES MD Common Visit Codes: [id number] DISCH DAY >30min TANG BATES MD Apr 11, 2024 11:40
--- NOTE | 2024-04-11 14:05 | ECG ---
[facility] Test Date: 2024-04-08 Test Time: 11:44:12 Pat Name: DOMINIK JAMA Department: er Room: 0214 A Gender: F Control Systems Technician: catherine : 1960 Requested By: NEHAL ROB Order Number: [id number] Reading MD: Pepe Regalado Measurements Intervals [place] Rate: 99 P: 83 KS: 147 QRS: 81 QRSD: 93 T: 70 QT: 372 QTc: 478 Interpretive Statements Sinus rhythm Left atrial enlargement Borderline right axis deviation Baseline wander in lead(s) V1,V2 Electronically Signed On 04-12-2024 17:53:09 PST by Pepe Regalado Please click the below link to view image of tracing.
== END 2024-04-11 13:57 | disposition home or self-care (01) | DRG 140 ==
LOC: EDBD 11:34 → ER 11:34 → OVERFLOW 16:29 → CENTRAL 04-09 10:26
PROVIDERS: ATTEND Family Medicine
DX: J44.1 Chronic obstructive pulmonary disease with (acute) exacerbation (principal); J96.01 Acute respiratory failure with hypoxia; E87.1 Hypo-osmolality and hyponatremia; J45.901 Unspecified asthma with (acute) exacerbation; Z99.81 Dependence on supplemental oxygen; D72.829 Elevated white blood cell count, unspecified; E11.9 Type 2 diabetes mellitus without complications; E66.9 Obesity, unspecified; I16.0 Hypertensive urgency; Z20.822 Contact with and (suspected) exposure to COVID-19; E78.00 Pure hypercholesterolemia, unspecified; Z68.29 Body mass index [BMI] 29.0-29.9, adult; Z85.828 Personal history of other malignant neoplasm of skin; Z88.5 Allergy status to narcotic agent; Z87.891 Personal history of nicotine dependence
CPT/HCPCS: 36415; 71045; 80053; 81001; 82962; 83036; 83735; 83880; 84484; 85025; 86803; 87340; 87426; 87804; 93005; 94640; G0378; J1815; J2405; J3490

== ENCOUNTER 2024-04-14 18:46 | Inpatient (IN) | payer MEDICAID ==
[~2024-04-14] VITALS: Ht 160 cm; Wt 51.8 kg
[~2024-04-14 18:46] MED LIST changes: +AMLO1TAB22 PO; +BUSP10TA31 PO; +DICL1GEL73 TOP; +DULO1CAP5 PO; -ERGO1CAP12 PO; +LEVO500T91 PO; +LIDO1PAD55 TOP; +LOSA-535 PO; +PRED20TA2 PO; +TRAZ1TAB12 PO
[2024-04-14] MEDS: ALBUTEROL SULF 2.5 MG/0.5ML(0.5%) NEB SOLN NEB ONE (19:32)
[2024-04-14] MEDS: IPRATROPIUM BROM 0.5 MG/2.5ML INH SOL NEB ONE (19:33)
--- NOTE | 2024-04-14 19:55 | DVH ---
CHEST RADIOGRAPH Indication: sob Technique: Single frontal view of the chest was obtained Comparison: XY CHEST PORTABLE on DOS: 04/10/24, XY CHEST PORTABLE on DOS: 04/08/24, CHEST PORTABLE on DOS : 02/08/20 FINDINGS: Lines and Tubes: None Lungs: No focal consolidation. Buttons are noted overlying the mediastinum which are most likely exte rnal to the patient. Nonspecific linear density overlying the left hemithorax and extending beyond th e margin of the lungs which is most likely external to the patient Pleura: No effusion. No pneumothorax. Cardiomediastinal contours: Unremarkable Bones: No acute osseous abnormality. IMPRESSION: No acute cardiopulmonary disease.
[2024-04-14 20:26] LABS: Basophils # (auto) 0.1 10 ^3/uL (0-0.2); Basophils % (auto) 0.7 % (0.0-2.0); Eosinophils # (auto) 0.1 10 ^3/uL (0-0.8); Eosinophils % (auto) 0.5 % (0.0-7.0); Hematocrit 41.8 % (36.0-46.0); Hemoglobin 14.8 g/dL (12.2-16.2); Lymphocytes # (auto) 3.8 10 ^3/uL (0.4-5.4); Lymphocytes % (auto) 33.4 % (10.0-50.0); Mean Corpuscular Hemoglobin 31.8 pg (28.0-32.0); Mean Corpuscular Hgb Conc. 35.5 g/dL (32.0-36.0); Mean Corpuscular Volume 89.6 fL (80.0-100.0); Monocytes # (auto) 0.9 10 ^3/uL (0-1.3); Monocytes % (auto) 7.7 % (0.0-12.0); Neutrophils # (auto) 6.5 10 ^3/uL (1.6-8.6); Neutrophils % (auto) 57.7 % (37.0-80.0); Nucleated Red Blood Cells % 0.1 %; Platelet Count (auto) 351 10^3/uL (140-450); Red Blood Cells 4.67 10^6/uL (4.0-5.20); Red Cell Distribution Width 12.1 % (11.8-14.3); White Blood Cell 11.2 10^3/uL (4.4-10.8)
[2024-04-14 20:46] LABS: Alanine Aminotransferase 28 U/L (7-40); Albumin 4.5 g/dL (3.2-4.8); Alkaline Phosphatase 97 U/L (46-116); Anion Gap 3 (5-15); Aspartate Aminotransferase 22 U/L (13-40); BUN/Creatinine Ratio 14.7 (10.0-20.0); Blood Urea Nitrogen 11 mg/dL (9-23); Calcium 10.3 mg/dL (8.7-10.4); Carbon Dioxide 30 mmol/L (20-31); Magnesium 1.7 mg/dL (1.6-2.6); Potassium 3.8 mmol/L (3.5-5.1)
[2024-04-14 20:47] LABS: Total Protein 6.9 g/dL (5.7-8.2)
--- NOTE | 2024-04-14 20:54 | ED.PDOC ---
SOB-HPI HPI Comments HPI: Poor Historian. 63-year-old female brought in by ambulance from home for shortness of breath and hypoxemia. Patient was admitted and discharged from the hospital on April 11 for with sounds like pneumonia. Patient has been on antibiotics but she feels she is not improving. Patient was feeling short of breath until she was placed on 2 L supplemental oxygen by EMS. Patient is not on oxygen at home. Initial vital signs was 193/67 heart rate 86 pulse ox 94% at 2 L. Past Medcial History: COPD, diabetes, hypertension, hyperlipidemia Past Surgical History: REVIEW OF SYSTEMS: CONSTITUTIONAL: Denies acute: fever, diaphoresis, chills, HEAD: Denies acute: headache, photophobia Eyes: Denies acute: Double vision, vision loss, eye pain, eye discharge. EARS: Denies acute: tinnitus, hearing loss, ear discharge, ear pain, THROAT: Denies acute: sore throat, swelling, difficulty swallowing , pain with swallowing, change in voice. NECK: Denies acute: neck pain, neck swelling, stiff neck. HEART: Denies acute : chest pain, palpitations, LUNGS: Denies acute: wheezing, cough, hemoptysis ABDOMEN: Denies acute: abdominal pain, Nausea, Vomiting, diarrhea, melena , hematemesis, hematochezia SKIN: Denies acute: rash, redness, lesions, itchiness. EXTREMITIES: Denies acute: calf pain, numbness, tingling, weakness, denies pain in extremity. Denies acute: Low back pain. Neuro: Denies acute: focal neurological deficit, motor or sensory focal neurological deficit, tremors, seizure like activity, confusion, dizziness, change in mental status, loss of bowel or bladder function, cauda equina like symptoms. : Denies acute: dysuria, hematuria, flank pain, increase in urinary frequency. PSYCH: Denies acute: hallucination, suicidal ideation, homicidal ideation. FEMALE: Denies acute: abnormal vaginal bleeding, foul odor, unusual discharge. PHYSICAL EXAM: General: no acute distress, awake and alert. Head: normocephalic, atraumatic. Neck: supple, trachea is midline, no swelling. Throat: Normal phonation. Eyes:, no erythema, no purulent discharge, no proptosis, no icterus. Heart: regular rate, regular rhythm, no significant murmur appreciated. Lungs: no apparent respiratory distress, Able to speak in full sentences. No wheezing, no rhonchi, no crackles. No stridors Clear to auscultation bilaterally. Abdomen: non tender to palpation, non distended, soft, no guarding, no rebound, + bowel sounds. Neuro: Awake, Alert, oriented to name, self, situation, follows commands GCS=15. Speech is normal. Skin: no petechia, no purpura, no cyanosis, non-pale, not jaundice. Lower extremities: --no - Pitting edema no deformity, no focal swelling, no calf TTP. Makes eye contact. moves all four extremities. Face: no apparent facial droop. Ambulating in the ED independently. 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 Family History Family History: Reviewed,noncontributory to illness Social History Smoker: Cigarettes, Less Than 1 Pack/Day Alcohol: Denies ETOH Use Drugs: Marijuana Lives In: Home X-Ray, Labs, Meds, VS Vital Signs Date Time Temp Pulse Resp B/P (MAP) Pulse Ox O2 Delivery O2 Flow Rate FiO2 04/14/24 23:21 98.6 82 16 175/76 (109) 94 98.6 04/14/24 21:22 98.2 81 16 161/79 (106) 95 98.2 04/14/24 21:22 16 95 Nasal Cannula* 2 28 04/14/24 19:33 18 94 Nasal Cannula* 2 28 04/14/24 19:07 22 64 Nasal Cannula* 2 28 04/14/24 19:02 98.0 86 22 193/67 (109) 94 04/14/24 18:48 88 Lab Test 04/14/24 23:06 04/14/24 21:30 04/14/24 20:18 Range/Units Urine Color Light-yellow Yellow Urine Clarity Clear Clear Urine pH 6.5 5.0-9.0 Urine Specific [place] 1.012 1.001-1.035 Urine Protein Negative Negative Urine Ketones Negative Negative Urine Blood Negative Negative /uL Urine Nitrite Negative Negative Urine Bilirubin Negative Negative Urine Urobilinogen Normal Negative mg/dL Urine Leukocyte Esterase Negative Negative /uL Urine RBC 1 0 - 4 /hpf Urine WBC 1 0 - 5 /hpf Urine Squamous Epithelial Cells Few <5 /hpf Urine Bacteria None seen None Seen /hpf Urine Glucose Trace Normal mg/dL Urine Opiates Screen Pending Urine Fentanyl Screen Pending Urine Barbiturates Screen Pending Urine Phencyclidine Screen Pending Urine Amphetamines Screen Pending Urine Benzodiazepines Screen Pending Urine Cocaine Screen Pending Urine Cannabinoids Screen Pending Troponin I High Sensitivity 7 6 </=34 ng/L Triglycerides Level 105 < 150 mg/dL Cholesterol Level 125 < 200 mg/dL LDL Cholesterol 51 < 100 mg/dL HDL Cholesterol 59 40-59 mg/dL White Blood Count 11.2 H 4.4-10.8 10^3/uL Red Blood Count 4.67 4.0-5.20 10^6/uL Hemoglobin 14.8 12.2-16.2 g/dL Hematocrit 41.8 36.0-46.0 % Mean Corpuscular Volume 89.6 80.0-100.0 fL Mean Corpuscular Hemoglobin 31.8 28.0-32.0 pg Mean Corpuscular Hemoglobin Concent 35.5 32.0-36.0 g/dL Red Cell Distribution Width 12.1 11.8-14.3 % Platelet Count 351 140-450 10^3/uL Mean Platelet Volume 6.3 L 6.9-10.8 fL Neutrophils (%) (Auto) 57.7 37.0-80.0 % Lymphocytes (%) (Auto) 33.4 10.0-50.0 % Monocytes (%) (Auto) 7.7 0.0-12.0 % Eosinophils (%) (Auto) 0.5 0.0-7.0 % Basophils (%) (Auto) 0.7 0.0-2.0 % Neutrophils # (Auto) 6.5 1.6-8.6 10 ^3/uL Lymphocytes # (Auto) 3.8 0.4-5.4 10 ^3/uL Monocytes # (Auto) 0.9 0-1.3 10 ^3/uL Eosinophils # (Auto) 0.1 0-0.8 10 ^3/uL Basophils # (Auto) 0.1 0-0.2 10 ^3/uL Nucleated Red Blood Cells 0.1 % Sodium Level 127 L 136-145 mmol/L Potassium Level 3.8 3.5-5.1 mmol/L Chloride Level 94 L 98-107 mmol/L Carbon Dioxide Level 30 20-31 mmol/L Anion Gap 3 L 5-15 Blood Urea Nitrogen 11 9-23 mg/dL Creatinine 0.75 0.550-1.02 mg/dL Glomerular Filtration Rate Calc 89 >90 mL/min BUN/Creatinine Ratio 14.7 10.0-20.0 Serum Glucose 125 H 74-106 mg/dL Lactic Acid Level 1.2 0.4-2.0 mmol/L Calcium Level 10.3 8.7-10.4 mg/dL Magnesium Level 1.7 1.6-2.6 mg/dL Total Bilirubin 0.3 0.2-1.0 mg/dL Aspartate Amino Transferase (AST) 22 13-40 U/L Alanine Aminotransferase (ALT) 28 7-40 U/L Alkaline Phosphatase 97 46-116 U/L B-Type Natriuretic Peptide 13.51 0-100 pg/mL Total Protein 6.9 5.7-8.2 g/dL Albumin 4.5 3.2-4.8 g/dL Current Medications Medications (Trade) Dose Ordered Sig/Camryn Route Start Time Stop Time Status Last Admin Albuterol (Ventolin Medneb) 2.5 mg ONCE ONCE NEB 04/14/24 19:15 04/14/24 19:18 DC 04/14/24 19:32 Ipratropium [place] (Atrovent Medneb) 1 mg ONCE ONCE NEB 04/14/24 19:15 04/14/24 19:18 DC 04/14/24 19:33 Methylprednisolone Sodium Succinate (Solu Medrol) 125 mg ONCE ONCE IV 04/14/24 19:15 04/14/24 19:18 DC 04/14/24 21:15 Acetaminophen/ Hydrocodone Bitart ([place] 5/325MG Tab) 1 tab ONCE ONCE PO 04/14/24 23:15 04/14/24 23:16 DC 04/14/24 23:13 CHEST RADIOGRAPH Indication: sob Technique: Single frontal view of the chest was obtained Comparison: XY CHEST PORTABLE on DOS: 04/10/24, XY CHEST PORTABLE on DOS: 04/08/24, CHEST PORTABLE on DOS: 02/08/20 FINDINGS: Lines and Tubes: None Lungs: No focal consolidation. Buttons are noted overlying the mediastinum which are most likely external to the patient. Nonspecific linear density overlying the left hemithorax and extending beyond the margin of the lungs which is most likely external to the patient Pleura: No effusion. No pneumothorax. Cardiomediastinal contours: Unremarkable Bones: No acute osseous abnormality. IMPRESSION: No acute cardiopulmonary disease. Departure 1 Departure Time of Disposition: 23:29 Impression: Primary Impression: Dyspnea Additional Impression: Hyponatremia Disposition: ADMITTED INPATIENT Admit to: [facility] Condition: Guarded Discharged With: Self I personally scribed for NEHAL ROB DO ([email or web address]) on 04/15/24 at 01:26. Electronically submitted by Sravan Amin ([email or web address]). NEHAL ROB DO Apr 14, 2024 20:54
[2024-04-14 21:10] LABS: Bilirubin, Total 0.3 mg/dL (0.2-1.0); Chloride 94 mmol/L (98-107); Glucose 125 mg/dL (74-106); Sodium 127 mmol/L (136-145)
[2024-04-14] MEDS: methylPREDNISolone SOD SUCC 125 MG/2 ML VL IV ONE (21:15)
[2024-04-14] MEDS: HYDROcodone-ACET 5/325MG TAB PO ONE (23:13)
[2024-04-15] VITALS (15 sets, daily range): BP systolic 147–182; BP diastolic 58–76; PULSE 65–110; RESP 14–28; TEMP 98.3–98.7; O2SAT 91–100
[2024-04-15] MEDS ORDERED: ACETAMINOPHEN 325 MG TAB PO PRN
[2024-04-15 00:23] LABS: Urine Bacteria None Seen /hpf (None Seen)
[2024-04-15 00:28] LABS: Triglycerides 105 mg/dL (< 150)
[2024-04-15 00:29] LABS: LDL Cholesterol 51 mg/dL (< 100)
[2024-04-15 00:30] LABS: Cholesterol 125 mg/dL (< 200); HDL Cholesterol 59 mg/dL (40-59)
[2024-04-15 00:36] LABS: Urine Blood Negative /uL (Negative); Urine Clarity Clear (Clear); Urine Color Light-Yellow (Yellow); Urine Protein, UAD Negative (Negative); Urine Specific Gravity 1.012 (1.001-1.035); Urine Squamous Epithelial Cell FEW /hpf (<5); Urine Urobilinogen Normal (Negative); Urine WBC 1 /hpf (0 - 5); Urine pH 6.5 (5.0-9.0)
--- NOTE | 2024-04-15 00:42 | DVHHPRES ---
History of Present Illness Resident Creating Document: MÓNICA FAYE RESIDENT History of Present Illness This is a 63-year-old female with past medical history of hypertension, dyslipidemia, COPD, type 2 diabetes mellitus, chronic lower back pain, anxiety, attacks who presented to the ED due to acute shortness of breath. The patient states that was recently discharged from our hospital for similar symptoms. The patient states that has shortness of breath that gets severely exacerbated with minimal exertion associated with cough and whitish sputum production. The patie nt denies fever/chills, chest pain, lower extremity swelling or abdominal pain. Upon admission, the patient was placed on 2 L of oxygen through nasal cannula saturating 94%. Initial labs showed WBC of 11.2, troponins were negative, BNP was on normal range at 13.51, lactic acid was 1.2 and rest of BNP was unremarkable. Initial chest x-ray was grossly clear with no evidence of clear focal consolidations. We will start the patient on steroids, IV antibiotics, respiratory therapy with albuterol/ipratropium med nebs and admit the patient for further assessment and management. Cardiovascular: HTN, hyperipidemia Pulmonary: COPD Psych: Anxiety, Panic Endocrine: Diabetes Past Surgical History: None Family History: None Smoke: <1 pack per day ALCOHOL: none Drugs: Marijuana Lives: with Family Domestic Violence: Neg Review of Systems Constitutional: No: Fever, Chills, Sweats, Weakness, Malaise, Other Eyes: No: Pain, Vision change, Conjunctivae inflammation, Eyelid inflammation, Other, Redness ENT: No: Ear pain, Ear discharge, Nose pain, Nose discharge, Nose congestion, Mouth pain, Mouth swelling, Throat pain, Throat swelling, Other Respiratory: Cough, Dry, Shortness of breath, SOB with excertion, Sputum; No: Wheezing, Hemoptysis, Pleuritic Pain, Wheezing, Other Cardiovascular: No: Chest Pain, Palpitations, Orthopnea, Paroxysmal Noc. Dyspnea, Edema, Lt Headedness, Other Gastrointestinal: No: Nausea, Vomiting, Abdominal Pain, Diarrhea, Constipation, Melena, Hematochezia, Other Genitourinary: No Dysuria, No Frequency, No Incontinence, No Hematuria, No Retention, No Other Musculoskeletal: No: other, neck pain, shoulder pain, arm pain, back pain, hand pain, leg pain, foot pain Skin: No: Rash, Lesions, Jaundice, Bruising, Other Neurological: No: Weakness, Numbness, Incoordination, Change in speech, Confusion, Seizures, Other Allergies: Coded Allergies: Codeine (Verified Allergy, Severe, 01/15/20) Nicotine (Verified Allergy, Unknown, 04/15/24) Nicotine patch Medications Current Medications Medications Dose Ordered Sig/Camryn Route Start Time Stop Time Status Last Admin Dose Admin Acetaminophen 650 mg Q6HP PRN PO 04/15/24 00:00 UNV Acetaminophen/ Hydrocodone Bitart 1 tab Q4HP PRN PO 04/15/24 00:00 UNV Exam Vital Signs Vital Signs Date Time Temp Pulse Resp B/P (MAP) Pulse Ox O2 Delivery O2 Flow Rate FiO2 04/14/24 23:21 98.6 82 16 175/76 (109) 94 98.6 04/14/24 21:22 Nasal Cannula* 2 28 General Appearance: Alert, Oriented X3, Cooperative, mild distress HEENT: Atraumatic, PERRLA, EOMI, Mucous membr. moist/pink Respiratory: Clear to auscultation, Normal air movement Cardiovascular: Regular rate, Normal S1, Normal S2, No murmurs Abdominal: Normal bowel sounds, Soft, No tenderness, No hepatospenomegaly, No masses Extremities: No clubbing, No cyanosis, No edema, Normal pulses, No tenderness/swelling Skin: No rashes, No breakdown, No significant lesion Neuro: Normal gait, Normal speech, Strength at 5/5 X4 ext, Normal tone, Sensation intact, Cranial nerves 3-12 NL, Reflexes 2+ Psych/Mental Status: Mental status NL, Mood NL Labs/Xrays Labs Test 04/14/24 21:30 04/14/24 20:18 Range/Units Troponin I High Sensitivity 7 </=34 ng/L White Blood Count 11.2 H 4.4-10.8 10^3/uL Red Blood Count 4.67 4.0-5.20 10^6/uL Hemoglobin 14.8 12.2-16.2 g/dL Hematocrit 41.8 36.0-46.0 % Mean Corpuscular Volume 89.6 80.0-100.0 fL Mean Corpuscular Hemoglobin 31.8 28.0-32.0 pg Mean Corpuscular Hemoglobin Concent 35.5 32.0-36.0 g/dL Red Cell Distribution Width 12.1 11.8-14.3 % Platelet Count 351 140-450 10^3/uL Mean Platelet Volume 6.3 L 6.9-10.8 fL Neutrophils (%) (Auto) 57.7 37.0-80.0 % Lymphocytes (%) (Auto) 33.4 10.0-50.0 % Monocytes (%) (Auto) 7.7 0.0-12.0 % Eosinophils (%) (Auto) 0.5 0.0-7.0 % Basophils (%) (Auto) 0.7 0.0-2.0 % Neutrophils # (Auto) 6.5 1.6-8.6 10 ^3/uL Lymphocytes # (Auto) 3.8 0.4-5.4 10 ^3/uL Monocytes # (Auto) 0.9 0-1.3 10 ^3/uL Eosinophils # (Auto) 0.1 0-0.8 10 ^3/uL Basophils # (Auto) 0.1 0-0.2 10 ^3/uL Nucleated Red Blood Cells 0.1 % Sodium Level 127 L 136-145 mmol/L Potassium Level 3.8 3.5-5.1 mmol/L Chloride Level 94 L 98-107 mmol/L Carbon Dioxide Level 30 20-31 mmol/L Anion Gap 3 L 5-15 Blood Urea Nitrogen 11 9-23 mg/dL Creatinine 0.75 0.550-1.02 mg/dL Glomerular Filtration Rate Calc 89 >90 mL/min BUN/Creatinine Ratio 14.7 10.0-20.0 Serum Glucose 125 H 74-106 mg/dL Lactic Acid Level 1.2 0.4-2.0 mmol/L Calcium Level 10.3 8.7-10.4 mg/dL Magnesium Level 1.7 1.6-2.6 mg/dL Total Bilirubin 0.3 0.2-1.0 mg/dL Aspartate Amino Transferase (AST) 22 13-40 U/L Alanine Aminotransferase (ALT) 28 7-40 U/L Alkaline Phosphatase 97 46-116 U/L B-Type Natriuretic Peptide 13.51 0-100 pg/mL Total Protein 6.9 5.7-8.2 g/dL Albumin 4.5 3.2-4.8 g/dL Assessment/Plan Assessment/Plan Assessment/plan Acute hypoxic respiratory failure likely due to COPD exacerbation -initial chest x-ray showed bilateral hyperinflated lungs but no clear consoli dations -start methylprednisolone 40 mg IV b.i.d. -start azithromycin IV -start albuterol/ipratropium med nebs -currently on 2 L of oxygen through nasal cannula saturating 94% -ABG showed respiratory alkalosis likely due to hyperventilation with metabolic compensation -monitor saturation Hypertensive urgency -IV labetalol 10mg once -Clonidine 0.1mg once -Restart losartan 100mg daily -Restart hydrochlorothiazide 25mg daily -Monitor BP closely Type 2 diabetes mellitus -ordered hemoglobin A1c -last blood glucose was 125 -start mild sliding scale insulin Dyslipidemia -ordered lipid panel -restart home atorvastatin 10 mg daily History of Anxiety and panic attacks -Resume home, Buspirone 10mg BID Goals of care discussed with the patient at bedside, full code Plan discussed with Dr. Rizzo Plan discussed with: Patient My Orders Orders - MÓNICA FAYE Procedure Category Date Status Time Admit ADMIT 04/14/24 Transmitted 23:51 Code Status CODE 04/14/24 Transmitted 23:51 Vital Signs BRUNA 04/14/24 In Process 23:51 Review Orders With BRUNA 04/14/24 In Process Adm. 23:51 Acetaminophen Tablet PHA 04/15/24 In Process (Tylenol Tablet) 00:00 Notify Of Changes BRUNA 04/14/24 In Process From Base 23:51 Advance Directive BRUNA 04/14/24 In Process 23:51 Urinalysis LAB 04/14/24 Logged 23:51 Lipid Panel LAB 04/14/24 Logged 23:51 Patient Condition ORDERS 04/14/24 Transmitted 23:51 Allergies BRUNA 04/14/24 In Process 23:51 Hydrocodone-Acet PHA 04/15/24 In Process 5/325mg Tab ([place] 00:00 Drug Screen LAB 04/14/24 Logged 23:51 Ambulate Every 4hours BRUNA 04/14/24 In Process 23:51 Date of Service: Apr 14, 2024 Billing Provider: SHERON RIZZO MD Common Visit Codes: [id number] INP/OBS CARE (HIGH) MÓNICA FAYE RESIDENT Apr 15, 2024 00:42 SHERON RIZZO MD Apr 15, 2024 20:43
[2024-04-15] MEDS ORDERED: DEXTROSE (50%) 50ML SYRG IV PRN (00:45)
[2024-04-15 01:50] LABS: Phencyclidine Screen, Urine Neg (NEGATIVE)
[2024-04-15 02:13] LABS: Amphetamine Screen, Urine Neg (NEGATIVE); Barbiturate Scree,Urine Neg (NEGATIVE); Benzodiazephine Screen, Urine Neg (NEGATIVE); Cannabinoid Screen, Urine Pos (NEGATIVE); Cocaine Screen, Urine Neg (NEGATIVE); Opiate Scree,Urine Pos (NEGATIVE)
[2024-04-15] MEDS: SODIUM CHLORIDE 0.9% 1,000 ML IV ONE (02:41)
[2024-04-15] MEDS: LABETALOL HCL 20 MG/4 ML VL IV ONE (02:45)
[2024-04-15 03:48] LABS: COVID19 ANTIGEN SOFIA FIA NEGATIVE (NEGATIVE); Rapid Influenza A Negative (Negative); Rapid Influenza B Negative (Negative)
[2024-04-15] MEDS: cloNIDine HCL 0.1 MG TAB PO ONE (03:52)
[2024-04-15] MEDS ORDERED: hydrALAZINE HCL 20 MG/ML VL IV PRN (05:00)
[2024-04-15] MEDS: HYDROcodone-ACET 5/325MG TAB PO PRN (06:30)
[2024-04-15] MEDS: ALBUTEROL SULF 2.5 MG/0.5ML(0.5%) NEB SOLN NEB SCH (06:49)
[2024-04-15] MEDS: IPRATROPIUM BROM 0.5 MG/2.5ML INH SOL NEB SCH (06:49)
[2024-04-15] MEDS: ACCU-CHEK COMFORT CURVE STRIP VI SCH (07:00)
[2024-04-15] MEDS: InsuLIN REG 1unit/0.01ml Soln (100units/ml) SC SCH (07:00)
[2024-04-15] MEDS: AZITHROMYCIN 500MG/ 250ML 250 ML IV SCH (08:27)
[2024-04-15] MEDS: busPIRone HCL 10 MG TAB PO SCH (08:31)
[2024-04-15] MEDS: methylPREDNISolone SOD SUCC 40 MG/ML VL IV SCH (08:31)
[2024-04-15] MEDS: ATORVASTATIN 20 MG TAB PO SCH ×2 (08:32→22:40)
[2024-04-15] MEDS: LOSARTAN POTASSIUM 50 MG TAB PO SCH (08:32)
[2024-04-15] MEDS: hydroCHLOROthiazide 25 MG TAB PO SCH (08:33)
--- NOTE | 2024-04-15 08:43 | ECG ---
[facility] Test Date: 2024-04-14 Test Time: 18:48:24 Pat Name: DOMINIK JAMA Department: ED Room: [address] [place] [address] A Gender: F Commercial Insulator: SANTOSH : 1960 Requested By: NEHAL ROB Order Number: [id number] Reading MD: Pepe Regalado Measurements Intervals [place] Rate: 88 P: 78 WI: 134 QRS: 78 QRSD: 88 T: 58 QT: 387 QTc: 469 Interpretive Statements Sinus rhythm Probable left atrial enlargement Borderline T abnormalities, anterior leads Artifact in lead(s) I,II,III,aVR,aVL,aVF Electronically Signed On 04-15-2024 13:13:11 PST by Pepe Regalado Please click the below link to view image of tracing.
--- NOTE | 2024-04-15 09:57 | DVHPNRES ---
Progress Note Date Seen: Apr 15, 2024 Resident Creating Document: HARVEY GALEANO RESIDENT Has the PT tested + for MRSA If YES, has PT been informed?: No Medical Necessity Reason Pt with a Central, PICC or Fol: No Subjective Patient reports: No new complaints Objective vital signs Vital Sign Date Time Temp Pulse Resp B/P (MAP) Pulse Ox O2 Delivery O2 Flow Rate FiO2 04/15/24 08:39 Nasal Cannula* 2 28 04/15/24 08:39 98.6 71 20 182/63 (102) 97 98.6 medications Current Medications Medications Dose Ordered Sig/Camryn Route Start Time Stop Time Status Last Admin Dose Admin Acetaminophen 650 mg Q6HP PRN PO 04/15/24 00:00 Acetaminophen/ Hydrocodone Bitart 1 tab Q4HP PRN PO 04/15/24 00:00 04/15/24 06:30 1 TAB Methylprednisolone Sodium Succinate 40 mg BID IV 04/15/24 10:00 04/15/24 08:31 40 MG Azithromycin 250 ml @ 125 mls/hr DAILY IV 04/15/24 10:00 04/15/24 08:27 125 MLS/HR Albuterol 2.5 mg Q6HR NEB 04/15/24 06:00 04/15/24 06:49 2.5 MG Ipratropium [place] 0.5 mg Q6HR NEB 04/15/24 06:00 04/15/24 06:49 0.5 MG Losartan Potassium 100 mg DAILY PO 04/15/24 10:00 04/15/24 08:32 100 MG Diagnostic Test (Pha) 1 strip ACHS 04/15/24 07:00 Insulin Human Regular ACHS SC 04/15/24 07:00 Dextrose 50 ml UD PRN IV 04/15/24 00:45 Atorvastatin Calcium 10 mg DAILY PO 04/15/24 10:00 04/15/24 08:32 10 MG Buspirone HCl 10 mg BID PO 04/15/24 10:00 04/15/24 08:31 10 MG Hydrochlorothiazide 25 mg DAILY PO 04/15/24 10:00 04/15/24 08:33 25 MG Hydralazine HCl 10 mg Q6HP PRN IV 04/15/24 09:45 Amlodipine Besylate 5 mg DAILY PO 04/16/24 10:00 Examination: GENERAL:Normal (Anxious), HEENT:Normal, NECK:Normal, LUNGS:Abnormal (Slow breathing, prolonged respiratory phase no wheezing), CVS:Normal, ABDOMEN:Normal, MSK:Normal, SKIN:Normal, NEURO:Normal, :Normal laboratory and microbiology Laboratory Tests 04/14/24 20:18 Test 04/14/24 20:18 Range/Units Serum Glucose 125 H 74-106 mg/dL Labs and/or images reviewed: Labs reviewed by me, Image(s) reviewed by me Problem List/Assessment/Plan Problem List/Assessment/Plan Hospitalization summary/ Assessment: A 63-year-old female with a history of hypertension, dyslipidemia, COPD, type 2 diabetes, chronic lower back pain, and anxiety presented to the emergency department with acute shortness of breath. She was recently discharged for similar symptoms. Her shortness of breath worsens with minimal exertion and is accompanied by a cough and whitish sputum. She denies fever, chills, chest pain, lower extremity swelling, or abdominal pain. On admission, she was placed on 2 L of oxygen via nasal cannula, with a saturation of 94%. Initial labs showed a WBC of 11.2, negative troponins, normal BNP at 13.51, and lactic acid at 1.2. The chest X-ray was clear. She will be started on steroids, IV antibiotics, and respiratory therapy with albuterol/ipratropium nebulizers and admitted for further assessment and management. She has no past surgical or family history and smokes less than one pack per day. Patient was admitted few days back for COPD exacerbation this time she came for desaturation. Plan: #Acute COPD exacerbation: Albuterol Atrovent Solu-Medrol #Known COPD: On home nebulizers, inhalers. #acute hypoxic respiratory failure: Came here with drop of saturation at 46% although it could be due to multiple reasons #Hypertensive urgency: Continue other home medication, started amlodipine 5, increased stool amlodipine 10, titrated up to keep the blood pressure 140/90 or below #Hyponatremia , chronic : Close follow up with daily BNP #Diabetes well-controlled, HbA1c 6.7: Home metformin, moderately compliant, on SSI BG target 140-180 #More than 50 year history of smoking #Dyslipidemia : Atorvastatin 40 mg to continue. #Degenerative joint disease: Baclofen 10 mg as needed, she is on 15 mg b.i.d. of morphine, as needed [place]. Follows with pain management team continue home medications. #Anxiety disorder/ panic disorder: Continue buspirone 10 mg p.o. b.i.d.. #Insomnia: Continue trazodone 150 mg p.o. daily. #polysubstance abuse: She has a history of polysubstance abuse the time of presentation patient had positive for marijuana, fentanyl and opioids. #history of noncompliance #denial of several medical advice is and scheduled medications in-hospital continues. #MRSA nares positive: Mupirocin on meant x5 days and doxycycline to continue Diet: cardiac/cc diet GI prophylaxis: protonix 40mg/continue DVT prophylaxis: Levonox 40mg continue Bowel regimen: bisacodyl as needed Barriers to discharge: Medical diagnosis and management in progress. Patient lives with family. We will check for home oxygen eligibility. PCP: trying to establish new 1 Specialist Relevant To Admission: pain management. Patient care and plan discussed with Dr. Mcnamara Disposition: Patient remains in Tele, downgrade to [facility] in 24 hour if stable. Full code: Patient full code, discussion needed 35 minutes Plan discussed with: Patient, Other My Orders My Orders Orders - HARVEY GALEANO Procedure Category Date Status Time Complete Blood Count LAB 04/15/24 Logged 09:19 Comprehensive LAB 04/15/24 Logged Metabolic Panel 09:19 Urine Sodium LAB 04/15/24 Logged 09:19 Osmolality Urine LAB 04/15/24 Logged 09:19 Urine Potassium LAB 04/15/24 Logged 09:19 Urine Creatinine LAB 04/15/24 Logged 09:19 Legionella LAB 04/15/24 Logged Pneumophila Abs 09:21 Blood Alcohol LAB 04/15/24 Logged 09:34 Hydralazine Injection PHA 04/15/24 In Process (Apresoline Inject 09:45 Amlodipine Tablet PHA 04/16/24 In Process (Norvasc Tablet) 10:00 Date of Service: Apr 15, 2024 Billing Provider: ERI MELENDREZ MD Common Visit Codes: [id number] INP/OBS CARE(HIGH) HARVEY GALEANO Apr 15, 2024 09:57 ERI MELENDREZ MD Apr 18, 2024 20:55
[2024-04-15 10:00] LABS: Basophils # (auto) 0 10 ^3/uL (0-0.2); Basophils % (auto) 0.2 % (0.0-2.0); Eosinophils # (auto) 0 10 ^3/uL (0-0.8); Hematocrit 40.1 % (36.0-46.0); Hemoglobin 14.4 g/dL (12.2-16.2); Lymphocytes % (auto) 22.2 % (10.0-50.0); Mean Corpuscular Hemoglobin 32.3 pg (28.0-32.0); Mean Corpuscular Hgb Conc. 35.9 g/dL (32.0-36.0); Monocytes # (auto) 0.7 10 ^3/uL (0-1.3); Monocytes % (auto) 7.3 % (0.0-12.0); Neutrophils # (auto) 6.3 10 ^3/uL (1.6-8.6); Neutrophils % (auto) 70.3 % (37.0-80.0); Platelet Count (auto) 335 10^3/uL (140-450); Red Blood Cells 4.45 10^6/uL (4.0-5.20); White Blood Cell 8.9 10^3/uL (4.4-10.8)
[2024-04-15] MEDS ORDERED: MORP15TA PO (10:06)
[2024-04-15] MEDS ORDERED: LIDO1.8P TOP (10:06)
[2024-04-15] MEDS ORDERED: BACL10TA PO (10:06)
[2024-04-15] MEDS ORDERED: BUSP10TA90 PO (10:06)
[2024-04-15] MEDS ORDERED: NORT25CA PO (10:06)
[2024-04-15] MEDS ORDERED: DOCU-94 PO (10:10)
[2024-04-15] MEDS ORDERED: METF-370 PO (10:10)
[2024-04-15] MEDS ORDERED: ATOR10TA PO (10:10)
[2024-04-15 10:24] LABS: Alanine Aminotransferase 24 U/L (7-40); Albumin 4.3 g/dL (3.2-4.8); Alkaline Phosphatase 91 U/L (46-116); Anion Gap 3 (5-15); Aspartate Aminotransferase 23 U/L (13-40); BUN/Creatinine Ratio 11.6 (10.0-20.0); Bilirubin, Total 0.4 mg/dL (0.2-1.0); Carbon Dioxide 30 mmol/L (20-31); Potassium 4.3 mmol/L (3.5-5.1)
[2024-04-15 10:25] LABS: Total Protein 6.9 g/dL (5.7-8.2)
[2024-04-15] MEDS: amLODIPine BESYLATE 5 MG TAB PO ONE ×2 (10:28→18:01)
[2024-04-15] MEDS: hydrALAZINE HCL 20 MG/ML VL IV PRN (10:39)
[2024-04-15 10:50] LABS: Sodium 128 mmol/L (136-145)
[2024-04-15 10:51] LABS: Blood Alcohol < 3.0 mg/dL (<10); Blood Urea Nitrogen 8 mg/dL (9-23); Chloride 95 mmol/L (98-107); Glucose 234 mg/dL (74-106)
[2024-04-15] MEDS ORDERED: MORPHINE SULF 15mg ER tab PO PRN (11:00)
[2024-04-15 11:56] LABS: Creatinine, Urine 11.38 mg/dL (30.0-125.0)
[2024-04-15] MEDS: MORPHINE SULF 15mg ER tab PO SCH (12:04)
[2024-04-15] MEDS ORDERED: HYDROcodone-ACET 5/325MG TAB PO PRN (12:30)
[2024-04-15] MEDS ORDERED: ACETAMINOPHEN 650 MG RECT SUPP PR PRN (17:00)
[2024-04-15] MEDS ORDERED: busPIRone HCL 10 MG TAB PO SCH ×2 (22:00)
[2024-04-15] MEDS: traZODone HCL 50 MG TAB PO SCH (22:38)
[2024-04-15] MEDS: HYDROcodone-ACET 10/325MG TAB PO SCH (22:39)
[2024-04-15] MEDS: BACLOFEN 10 MG TAB PO SCH (22:40)
[2024-04-15] MEDS: hydrOXYzine 25 MG TAB or CAP PO SCH (22:41)
[2024-04-15] MEDS: BISACODYL 5 MG EC TAB PO SCH (22:42)
[2024-04-16] VITALS (14 sets, daily range): BP systolic 129–180; BP diastolic 56–65; PULSE 72–102; RESP 15–20; TEMP 97.7–98.7; O2SAT 91–100
[2024-04-16] MEDS: LIDOCAINE 5% TOPICAL PATCH TOP SCH (09:21)
[2024-04-16] MEDS: AZITHROMYCIN 250 MG TAB PO SCH (09:24)
[2024-04-16] MEDS: amLODIPine BESYLATE 5 MG TAB PO SCH (09:25)
[2024-04-16] MEDS: PROMETHAZINE HCL 6.25 MG/5 ML ORAL SYRUP PO SCH (09:31)
--- NOTE | 2024-04-16 09:40 | DVHDSRES ---
Discharge Summary Date of Admission Resident Creating Document: HARVEY GALEANO RESIDENT Apr 14, 2024 at 23:51 Date of Discharge: Apr 16, 2024 Admitting Diagnosis Acute hypoxic respiratory failure, COPD exacerbation Labs/Diagnostic Data: Laboratory Results Test 04/16/24 06:28 04/15/24 10:14 04/15/24 09:31 04/15/24 03:02 POC Glucose 274 mg/dl (70-106) Urine Osmolality 311 mOsm/kg Urine Creatinine 11.38 mg/dL (30.0-125.0) Urine Sodium 98 mmol/L (40-220) Urine Potassium 19 mmol/L (12-62) White Blood Count 8.9 10^3/uL (4.4-10.8) Red Blood Count 4.45 10^6/uL (4.0-5.20) Hemoglobin 14.4 g/dL (12.2-16.2) Hematocrit 40.1 % (36.0-46.0) Mean Corpuscular Volume 90.0 fL (80.0-100.0) Mean Corpuscular Hemoglobin 32.3 pg (28.0-32.0) Mean Corpuscular Hemoglobin Concent 35.9 g/dL (32.0-36.0) Red Cell Distribution Width 12.0 % (11.8-14.3) Platelet Count 335 10^3/uL (140-450) Mean Platelet Volume 6.8 fL (6.9-10.8) Neutrophils (%) (Auto) 70.3 % (37.0-80.0) Lymphocytes (%) (Auto) 22.2 % (10.0-50.0) Monocytes (%) (Auto) 7.3 % (0.0-12.0) Eosinophils (%) (Auto) 0.0 % (0.0-7.0) Basophils (%) (Auto) 0.2 % (0.0-2.0) Neutrophils # (Auto) 6.3 10 ^3/uL (1.6-8.6) Lymphocytes # (Auto) 2.0 10 ^3/uL (0.4-5.4) Monocytes # (Auto) 0.7 10 ^3/uL (0-1.3) Eosinophils # (Auto) 0 10 ^3/uL (0-0.8) Basophils # (Auto) 0 10 ^3/uL (0-0.2) Nucleated Red Blood Cells 0.0 % Sodium Level 128 mmol/L (136-145) Potassium Level 4.3 mmol/L (3.5-5.1) Chloride Level 95 mmol/L (98-107) Carbon Dioxide Level 30 mmol/L (20-31) Anion Gap 3 (5-15) Blood Urea Nitrogen 8 mg/dL (9-23) Creatinine 0.69 mg/dL (0.550-1.02) Glomerular Filtration Rate Calc 97 mL/min (>90) BUN/Creatinine Ratio 11.6 (10.0-20.0) Serum Glucose 234 mg/dL (74-106) Serum Osmolality 277 mOsm/kg (278-298) Calcium Level 10.0 mg/dL (8.7-10.4) Total Bilirubin 0.4 mg/dL (0.2-1.0) Aspartate Amino Transferase (AST) 23 U/L (13-40) Alanine Aminotransferase (ALT) 24 U/L (7-40) Alkaline Phosphatase 91 U/L (46-116) Total Protein 6.9 g/dL (5.7-8.2) Albumin 4.3 g/dL (3.2-4.8) Plasma/Serum Blood Alcohol < 3.0 mg/dL (<10) Influenza Type A Antigen Negative (Negative) Influenza Type B Antigen Negative (Negative) SARS-CoV-2 Antigen (Rapid) Negative (NEGATIVE) Test 04/15/24 00:20 04/14/24 23:06 04/14/24 21:30 04/14/24 20:18 Blood Gas Specimen Type Arterial Blood Gas Sample Site Right radial Blood Gas Patient Temperature 37.0 Arterial Blood Date Drawn [id number] Arterial Blood pH 7.524 (7.350-7.450) Arterial Blood Partial Pressure CO2 31.1 mmHg (32.0-45.0) Arterial Blood Partial Pressure O2 70.3 mmHg (83.0-108.0) Arterial Blood HCO3 25.1 mmol/L (21.0-28.0) Arterial Blood Oxygen Saturation 95.2 % (94.0-98.0) Arterial Blood Base Excess 3.0 mmol/L (-2.0-3.0) Arterial Blood Oxyhemoglobin 93.1 % (94.0-98.0) Arterial Blood Carboxyhemoglobin 2.1 % (0.5-1.5) Arterial Blood Methemoglobin 0.1 % (0.0-1.5) Urban Test Modified Blood Gas Total Hemoglobin 14.70 g/dL (12.0-16.0) Blood Gas Modality Room air FiO2 % 21.0 Urine Color Light-yellow (Yellow) Urine Clarity Clear (Clear) Urine pH 6.5 (5.0-9.0) Urine Specific [place] 1.012 (1.001-1.035) Urine Protein Negative (Negative) Urine Ketones Negative (Negative) Urine Blood Negative /uL (Negative) Urine Nitrite Negative (Negative) Urine Bilirubin Negative (Negative) Urine Urobilinogen Normal mg/dL (Negative) Urine Leukocyte Esterase Negative /uL (Negative) Urine RBC 1 /hpf (0 - 4) Urine WBC 1 /hpf (0 - 5) Urine Squamous Epithelial Cells Few /hpf (<5) Urine Bacteria None seen /hpf (None Seen) Urine Glucose Trace mg/dL (Normal) Urine Opiates Screen Pos (NEGATIVE) Urine Fentanyl Screen Pos (NEGATIVE) Urine Barbiturates Screen Neg (NEGATIVE) Urine Phencyclidine Screen Neg (NEGATIVE) Urine Amphetamines Screen Neg (NEGATIVE) Urine Benzodiazepines Screen Neg (NEGATIVE) Urine Cocaine Screen Neg (NEGATIVE) Urine Cannabinoids Screen Pos (NEGATIVE) Troponin I High Sensitivity 7 ng/L (</=34) Triglycerides Level 105 mg/dL (< 150) Cholesterol Level 125 mg/dL (< 200) LDL Cholesterol 51 mg/dL (< 100) HDL Cholesterol 59 mg/dL (40-59) Lactic Acid Level 1.2 mmol/L (0.4-2.0) Magnesium Level 1.7 mg/dL (1.6-2.6) B-Type Natriuretic Peptide 13.51 pg/mL (0-100) Other Laboratory Tests 04/15/24 09:31 Brief Hx & Hospital Course: Hospitalization summary/ Assessment: A 63-year-old female with a history of hypertension, dyslipidemia, COPD, type 2 diabetes, chronic lower back pain, and anxiety presented to the emergency department with acute shortness of breath. She was recently discharged for similar symptoms. Her shortness of breath worsens with minimal exertion and is accompanied by a cough and whitish sputum. She denies fever, chills, chest pain, lower extremity swelling, or abdominal pain. On admission, she was placed on 2 L of oxygen via nasal cannula, with a saturation of 94%. Initial labs showed a WBC of 11.2, negative troponins, normal BNP at 13.51, and lactic acid at 1.2. The chest X-ray was clear. She will be started on steroids, IV antibiotics, and respiratory therapy with albuterol/ipratropium nebulizers and admitted for further assessment and management. She has no past surgical or family history and smokes less than one pack per day. She came with acute hypoxic respiratory failure and COPD exacerbation. Post treatment, she was checked for with [facility] for need of home oxygen which she did not qualify for. Patient was demanding of home oxygen but she was counseled regarding her pathophysiology and treatment plan. She was advised to follow up with her primary care physician and establish care with superior court justice. Medical conditions treated in hospital: #Acute COPD exacerbation: Albuterol Atrovent Solu-Medrol #Known COPD: On home nebulizers, inhalers. #acute hypoxic respiratory failure: Came here with drop of saturation at 46% although it could be due to multiple reasons #Hypertensive urgency: Continue other home medication, started amlodipine 5, increased stool amlodipine 10, titrated up to keep the blood pressure 140/90 or below #Hyponatremia , chronic : Close follow up with daily BNP #Diabetes well-controlled, HbA1c 6.7: Home metformin, moderately compliant, on SSI BG target 140-180 #More than 50 year history of smoking #Dyslipidemia : Atorvastatin 40 mg to continue. #Degenerative joint disease: Baclofen 10 mg as needed, she is on 15 mg b.i.d. of morphine, as needed [place]. Follows with pain management team continue home medications. #Anxiety disorder/ panic disorder: Continue buspirone 10 mg p.o. b.i.d.. #Insomnia: Continue trazodone 150 mg p.o. daily. #polysubstance abuse: She has a history of polysubstance abuse the time of presentation patient had positive for marijuana, fentanyl and opioids. #history of noncompliance #denial of several medical advice is and scheduled medications in-hospital continues. #MRSA nares positive: Mupirocin on meant x5 days and doxycycline to continue At discharge: PCP: Follow up within 1-2 weeks of surgical asst Relevant To Admission: pain management to follow up, establish care with superior court justice as it to definitely benefit her overall health status/respiratory reason management. Medications: Patient did asked to continue home medications and additionally given Amoxicillin for 7 days, doxycycline for 7 days and prednisone for 5 days[address] Plan discussed with Dr. Mcnamara Patient is discharged home. Agreeable to the plan. Condition at Discharge: Guarded Final Diagnosis/Problems List #Acute COPD exacerbation: #Known COPD: #acute hypoxic respiratory failure: #Hypertensive urgency: #Hyponatremia chronic. #Diabetes well-controlled, HbA1c 6.7: Home metformin, moderately compliant, on SSI BG target 140-180 #More than 50 year history of smoking #Dyslipidemia : Atorvastatin 40 mg to continue. #Degenerative joint disease: Baclofen 10 mg as needed, she is on 15 mg b.i.d. of morphine, as needed [place]. Follows with pain management team continue home medications. #Anxiety disorder/ panic disorder: Continue buspirone 10 mg p.o. b.i.d.. #Insomnia: Continue trazodone 150 mg p.o. daily. #polysubstance abuse: She has a history of polysubstance abuse the time of presentation patient had positive for marijuana, fentanyl and opioids. #history of noncompliance #denial of several medical advice is and scheduled medications in-hospital continues. #MRSA nares positive: Mupirocin on meant x5 days and doxycycline to continue Discharge Disposition: Home Discharge Instruct/Medications Diet: Consistent carbohydrate Activity: No Restrictions, As Tolerated Follow Up/Referral: As above Medications: As above Discharge Statement: "Patient was advised to return to the ER or call 911 if any headaches, dizziness, shortness of breath, chest pain, abdominal pain, bleeding, fevers, or worsening of medical condition. Patient was counseled about treatment plan, medications, possible side effects, patientverbalized understanding. All questions were answered to the best of my ability. This discharge took greater then 30 minutes in planning, reviewing documentation, counseling the patient, and discussing with other team members." ASSESSMENT ASSESSMENT Assessment Date of Service: Apr 16, 2024 Billing Provider: ERI MELENDREZ MD Common Visit Codes: 16058-QOY/OBS DISCH DAY >30min HARVEY GALEANO RESIDENT Apr 16, 2024 09:40 ERI MELENDREZ MD Apr 18, 2024 21:50
[2024-04-16] MEDS ORDERED: amLODIPine BESYLATE 5 MG TAB PO SCH (10:00)
[2024-04-16] MEDS: NIFEdipine ER 30 MG TAB PO ONE (11:15)
[2024-04-16] MEDS ORDERED: DOX100T PO (15:12)
[2024-04-16] MEDS ORDERED: PRED20TA2 PO (15:12)
[2024-04-16] MEDS ORDERED: AUG875T PO (15:12)
[2024-04-17] MEDS ORDERED: NIFEdipine ER 30 MG TAB PO SCH (10:00)
== END 2024-04-16 19:58 | disposition home or self-care (01) | DRG 140 ==
LOC: ER 18:46 → EDBD 18:46 → OVERFLOW 23:51 → TELE-CENTR 04-15 15:44
PROVIDERS: ADMIT Student in an Organized Health Care Education/Training Program; ATTEND Student in an Organized Health Care Education/Training Program
DX: J44.1 Chronic obstructive pulmonary disease with (acute) exacerbation (principal); J96.01 Acute respiratory failure with hypoxia; E87.1 Hypo-osmolality and hyponatremia; E78.5 Hyperlipidemia, unspecified; I10 Essential (primary) hypertension; E11.9 Type 2 diabetes mellitus without complications; I16.0 Hypertensive urgency; F41.0 Panic disorder [episodic paroxysmal anxiety]; F19.10 Other psychoactive substance abuse, uncomplicated; G47.00 Insomnia, unspecified; Z87.891 Personal history of nicotine dependence; Z79.4 Long term (current) use of insulin; Z79.899 Other long term (current) drug therapy
CPT/HCPCS: 36415; 36600; 71045; 80053; 80061; 80307; 80320; 81001; 82570; 82805; 82962; 83605; 83735; 83880; 83930; 83935; 84133; 84300; 84484; 85025; 87081; 87278; 87426; 87804; 93005; 94640; G0378; J1815